=== PATIENT | male | born 1940 | race Caucasian/White ===

== ENCOUNTER 2020-01-18 18:12 | Inpatient (IN) | payer MEDICARE, OTHER ==
[2020-01-18 18:58] VITALS: BMI 33.3
[2020-01-18] MEDS ORDERED: Metolazone 5 MG TAB PO PRN (20:40)
[2020-01-18] MEDS ORDERED: Senokot S 8.6-50 MG TAB PO PRN (20:40)
[2020-01-18] MEDS ORDERED: Albuterol Sulfate 2.5 mg/3 ml Neb NEB PRN (20:40)
[2020-01-18] MEDS ORDERED: Furosemide 40 MG TAB PO SCH (21:00)
[2020-01-18] MEDS ORDERED: cefTRIAXone\\ROCEPHIN 2 GM VIAL IVPB SCH (21:00)
[2020-01-18] MEDS: Atorvastatin Calcium 20 MG TAB PO SCH (21:37)
[2020-01-18] MEDS: cefTRIAXone\\ROCEPHIN 2 GM in Sodium Chloride 0.9% 100 ML IVPB SCH (21:37)
[2020-01-18] MEDS: Apixaban 2.5 MG TAB PO SCH (21:37)
[2020-01-18] MEDS: Gabapentin 300 MG CAP PO SCH (21:37)
[2020-01-18] MEDS: Ampicillin 2 GM in Sodium Chloride 0.9% 100 ML IVPB SCH (23:01)
[2020-01-18] MEDS ORDERED: Ampicillin 2 GM VIAL IVPB SCH (23:59)
[2020-01-19] MEDS: Ampicillin 2 GM in Sodium Chloride 0.9% 100 ML IVPB SCH ×4 (00:30→18:17)
[2020-01-19] MEDS: cefTRIAXone\\ROCEPHIN 2 GM in Sodium Chloride 0.9% 100 ML IVPB SCH ×4 (00:30→20:30)
[2020-01-19] MEDS: Furosemide 40 MG TAB PO SCH ×2 (05:29→14:47)
[2020-01-19 05:35] LABS: ALT (SGPT) 220 U/L (8-55); AST (SGOT) 121 U/L (5-34); Albumin 2.6 g/dL (3.4-4.8); Alkaline Phosphatase 203 U/L (40-110); Anion Gap 13 mmol/L (10-20); Anisocytosis SLIGHT = 6-15 cells (100X) (0-5/hpf); BUN (Urea Nitrogen) 32 mg/dL (8.4-25.7); Band 16 % (5-11); Bilirubin, Total 0.3 mg/dL (0.2-1.2); Calc. Creatinine Clearance 96 mL/min (70-130); Calcium 8.2 mg/dL (7.8-10.44); Carbon Dioxide 24 mmol/L (23-31); Chloride 106 mmol/L (98-107); Estimated GFR-MDRD 71; Glucose 94 mg/dL (83-110); Hemoglobin 9.7 g/dL (14.0-18.0); Lymphocytes 10 % (21-51); MDiff Complete? YES; Mean Corpuscular Hemoglobin 32.3 pg (27.0-31.0); Mean Platelet Volume 5.6 fL (7.4-10.4); Metamyelocyte 6 % (0-0); Monocytes 3 % (0-10); Myelocyte 3 % (0-0); Neutrophil 62 % (42-75); Platelet Count 358 thou/uL (130-400); Platelet Morphology Comment Appears Adequate; Polychromasia SLIGHT = 2-3 cells (100X) (0-2/hpf); Protein, Total 5.6 g/dL (5.8-8.1); RBC Distribution Width 12.4 % (11.5-14.5); Red Blood Cell (RBC) Count 3.01 mill/uL (4.70-6.10); Sodium 138 mmol/L (136-145); White Blood Cell (WBC) Count 15.2 thou/uL (4.8-10.8)
[2020-01-19] MEDS ORDERED: Mometasone/Formoterol 200/5 60 PUFF INH PRN (06:30)
[2020-01-19] MEDS: Colchicine 0.6 MG TAB PO SCH (09:24)
[2020-01-19] MEDS: Thiamine 100 MG TAB PO SCH (09:24)
[2020-01-19] MEDS: Ferrous Sulfate 325 MG TAB PO SCH (09:25)
[2020-01-19] MEDS: Potassium Chloride 20 MEQ TAB PO SCH (09:25)
[2020-01-19] MEDS: Multivitamin W/ Minerals 1 TAB PO SCH (09:25)
[2020-01-19] MEDS: Spironolactone 25 MG TAB PO SCH (09:25)
[2020-01-19] MEDS: Amiodarone 200 MG TAB PO SCH (09:25)
[2020-01-19] MEDS: Allopurinol 100 MG TAB PO SCH (09:26)
[2020-01-19] MEDS: Apixaban 2.5 MG TAB PO SCH ×2 (09:26→20:28)
[2020-01-19] MEDS: Aspirin 81 mg Enteric Coated Tablet PO SCH (09:26)
[2020-01-19] MEDS: Magnesium Oxide 400 MG TAB PO SCH (09:26)
[2020-01-19] MEDS: Polyethylene Glycol 3350 17 GM Packet PO SCH (09:26)
[2020-01-19] MEDS ORDERED: Sodium Chloride 0.9% 20 ML ONE (10:10)
[2020-01-19] MEDS: Acetaminophen 325 MG TAB PO PRN (14:49)
[2020-01-19] MEDS ORDERED: Sodium Chloride 0.9% 10 ML ONE (16:09)
[2020-01-19] MEDS: Gabapentin 300 MG CAP PO SCH (20:27)
[2020-01-19] MEDS: Atorvastatin Calcium 20 MG TAB PO SCH (20:28)
--- NOTE | 2020-01-19 22:10 | PRG ---
DATE OF SERVICE: 01/19/2020 SUBJECTIVE: The patient feels well. No complaints. States he has been up out of the bed, having no shortness of breath, fever, or chills. OBJECTIVE: VITAL SIGNS: Shows temperature is 97, pulse 62, respirations 18, O2 sats 98% on room air, blood pressure 128/60. LUNGS: Clear. CARDIAC: Shows regular rhythm. Pacemaker site, minimal tenderness. SKIN/EXTREMITIES: Shows tender right ankle. No erythema. Trace to 1+ peripheral edema. ASSESSMENT: 1. 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 2. Elevated liver function studies, worsened in the last several days and we will obtain abdominal ultrasound, although the patient is nontender to evaluate for occult cholecystitis. 3. Systolic heart failure, appears to be compensated. 4. Atrial fibrillation, status post ablation with Watchman procedure. 5. Colchicine-induced arthropathy, persistent, but controlled on and allopurinol. PLAN: 1. Abdominal ultrasound on Tuesday. Continue IV Rocephin and ampicillin. 2. Continue to monitor for recurrent atrial fibrillation. 3. Continue to monitor for fluid overload. Job ID: [id number]
--- NOTE | 2020-01-20 03:12 | HP ---
HISTORY OF PRESENT ILLNESS: The patient is an 79-year-old white male with a history of chronic atrial fibrillation with a Watchman device and pacemaker as well as coronary disease who presented with increased edema, fever. Two weeks ago was evaluated at [facility], found to have enterococcal bacteremia, was seen by Infectious Disease, found to have no specific source in the colon or the urine and was felt he possibly had an infected pacemaker. The patient was, therefore, started on Rocephin and ampicillin for 4 weeks and transferred to [facility] for continued therapy. He feels well at this time except for his pain in his right ankle, where he has his chronic crystal-induced arthropathy. He has been working with nurses in walking and is limited more by his ankle than by shortness of breath. He denies any shortness of breath or chest pain, fever or chills since his admission to the [facility]. PAST MEDICAL HISTORY: As mentioned above, is positive for atrial fibrillation and is status post Watchman procedure and pacemaker, but also has a history of coronary artery disease status post angioplasty and a history of hypertension as well as the crystal-induced arthropathy. PAST SURGICAL HISTORY: Positive for cholecystectomy, hernia repair, bilateral shoulder and knee surgeries. SOCIAL HISTORY: He lives with his of many years. He is a nonsmoker. He drinks alcohol daily. ALLERGIES: HE HAS NO KNOWN ALLERGIES. MEDICATIONS: At this time include: 1. Allopurinol 100 mg daily. 2. Amiodarone 400 mg daily. 3. Ampicillin 2 g IV q.6 for 30 days. 4. Apixaban 2.5 mg twice daily. 5. Aspirin 81 daily. 6. Atorvastatin 20 mg daily. 7. Rocephin 2 g IV q.12. 8. Colchicine 0.6 mg daily. 9. Ferrous sulfate 325 mg daily. 10. Furosemide 40 mg twice daily. 11. Gabapentin 600 mg nightly. 12. Magnesium oxide 400 mg daily. 13. Metolazone 5 mg daily p.r.n. edema. 14. Mometasone. 15. Formoterol. 16. Dulera 200 mcg/5 mcg inhaler 2 puffs twice daily. 17. Pantoprazole 40 mg twice daily. 18. KCl 40 mEq daily. 19. MiraLAX 17 g daily. 20. Spironolactone 50 mg daily. 21. Thiamine 100 mg daily. REVIEW OF SYSTEMS: HEENT: Denies headaches, dizziness, change in vision, hoarseness or dysphagia. PULMONARY: Denies cough, sputum production, shortness of breath, but does state he has dyspnea on exertion. CARDIOVASCULAR: Has some peripheral edema, but denies chest pain, palpitations, orthopnea, paroxysmal nocturnal dyspnea. GASTROINTESTINAL: Complains of constipation, but denies nausea, vomiting, diarrhea, abdominal pain. GENITOURINARY: Denies dysuria, hematuria, nocturia. MUSCULOSKELETAL: Complains of pain, tenderness, swelling in both ankles. PHYSICAL EXAMINATION: GENERAL: The patient is an elderly white male, lying in bed, in no acute distress, oriented x3, and cooperative. VITAL SIGNS: Show him to have a blood pressure of 154/67, temperature 97.9, pulse 68, respirations 20, O2 sats 96% on room air. HEENT: Pupils are equal, round, and reactive to light and accommodation. Oral mucous membranes well hydrated. NECK: Supple. There are no nodes or masses. JVP is not elevated. LUNGS: Clear. CARDIAC: Shows regular rhythm. Pacemaker is in place. No murmurs, gallops. ABDOMEN: Soft and nontender. SKIN: Extremities show tender right ankle with minimal swelling. No erythema or warmth. NEUROLOGICAL: Shows no focal findings. LABORATORY DATA: White count down to 15,200 today, hematocrit 30, hemoglobin 9.7. Sodium 138, potassium 5.0, chloride 106, bicarb 24, BUN 32, creatinine 1.01, glucose 94, calcium 8.2, AST 121, ALT 220, alkaline phosphatase 203. ASSESSMENT: An 79-year-old white male with: 1. A history of ischemic cardiomyopathy, ejection fraction 30% to 35%, an AICD in place after ablation of atrial fibrillation and placement of Watchman procedure, who has been found to have enterococcal bacteremia with fever and chills in 2/2 blood cultures and is felt to be need to be treated for endocarditis. There is no other source of bacteremia in the colon or urine. He has been started on ampicillin and Rocephin for 4 weeks and admitted to [facility] to finish the course. He has the underlying history as mentioned above of coronary artery disease and ischemic cardiomyopathy, status post defibrillator, but denies any shortness of breath or chest pain at rest and states that he is limited in his exercise capability because of his arthritis in his ankle. 2. Crystal-induced arthropathy of both ankles, right worse than left, treated with colchicine with tolerable, but persistent pain. 3. Hypertension, controlled at goal. PLAN: 1. Continue prehospitalization medications of amiodarone 400 daily as well as ampicillin 2 g q.6 for 30 days and Rocephin 2 g q.12 for 30 days. Also, continue on allopurinol 100 mg daily and colchicine 0.6 daily for crystal-induced arthropathy and continue on apixaban 2.5 twice daily, furosemide 40 mg twice daily, and metolazone 5 mg as needed for edema. 2. Continue on thiamine and spironolactone 50 mg daily for alcoholic liver disease and possible withdrawal, but we will also get abdominal ultrasound on Tuesday because of increasing liver function studies and possible alcoholic hepatitis or obstructive cholangitis causing the bacteremia. Job ID: [id number]
[2020-01-20] MEDS: Ampicillin 2 GM in Sodium Chloride 0.9% 100 ML IVPB SCH ×3 (06:25→18:14)
[2020-01-20] MEDS: Furosemide 40 MG TAB PO SCH ×2 (06:25→13:02)
[2020-01-20] MEDS ORDERED: Sodium Chloride 0.9% 10 ML ONE (08:54)
[2020-01-20] MEDS: cefTRIAXone\\ROCEPHIN 2 GM in Sodium Chloride 0.9% 100 ML IVPB SCH ×2 (09:29→20:24)
[2020-01-20] MEDS: Polyethylene Glycol 3350 17 GM Packet PO SCH (09:29)
[2020-01-20] MEDS: Spironolactone 25 MG TAB PO SCH (09:30)
[2020-01-20] MEDS: Amiodarone 200 MG TAB PO SCH (09:30)
[2020-01-20] MEDS: Allopurinol 100 MG TAB PO SCH (09:30)
[2020-01-20] MEDS: Colchicine 0.6 MG TAB PO SCH (09:30)
[2020-01-20] MEDS: Potassium Chloride 20 MEQ TAB PO SCH (09:30)
[2020-01-20] MEDS: Thiamine 100 MG TAB PO SCH (09:30)
[2020-01-20] MEDS: Apixaban 2.5 MG TAB PO SCH ×2 (09:31→20:27)
[2020-01-20] MEDS: Aspirin 81 mg Enteric Coated Tablet PO SCH (09:31)
[2020-01-20] MEDS: Multivitamin W/ Minerals 1 TAB PO SCH (09:31)
[2020-01-20] MEDS: Ferrous Sulfate 325 MG TAB PO SCH (09:31)
[2020-01-20] MEDS: Magnesium Oxide 400 MG TAB PO SCH (09:31)
[2020-01-20] MEDS: Gabapentin 300 MG CAP PO SCH (20:27)
[2020-01-20] MEDS: Atorvastatin Calcium 20 MG TAB PO SCH (20:27)
--- NOTE | 2020-01-20 20:35 | PRG ---
DATE OF SERVICE: SUBJECTIVE: The patient feels well. No complaints of chest pain, shortness of breath, fever, or chills. He slept well through the night. Has eaten well today. OBJECTIVE: VITAL SIGNS: Show temperature is 97.1 pulse 62, respirations 18, O2 sats 98% on room air, and blood pressure 147/68. LUNGS: Clear. CARDIAC EXAMINATION: Shows regular rhythm. ABDOMEN: Soft and nontender. CHEST WALL: Pacemaker site shows minimal tenderness. SKIN AND EXTREMITIES: Show minimally tender swollen right ankle. ASSESSMENT: 1. Enterococcal bacteremia, on IV ampicillin and Rocephin 4 weeks. 2. Elevated liver function studies on unknown etiology with abdominal ultrasound tomorrow. 3. Systolic heart failure appears to be compensated. 4. Atrial fibrillation, status post ablation, pacemaker and Watchman procedure. 5. Colchicine-induced arthropathy, persistent, but controlled with allopurinol. PLAN: 1. Continue IV Rocephin and ampicillin for 4 weeks. 2. Obtain abdominal ultrasound tomorrow. 3. Continue to monitor for recurrent atrial fibrillation. 4. Continue to monitor for decompensation of congestive heart failure. 5. Dr. Montoya will be back tonight. Job ID: [id number]
[2020-01-21] MEDS: Ampicillin 2 GM in Sodium Chloride 0.9% 100 ML IVPB SCH ×4 (00:25→18:08)
[2020-01-21] MEDS: Furosemide 40 MG TAB PO SCH ×2 (05:23→13:52)
[2020-01-21] MEDS: Amiodarone 200 MG TAB PO SCH (08:58)
[2020-01-21] MEDS: Allopurinol 100 MG TAB PO SCH (08:58)
[2020-01-21] MEDS: Apixaban 2.5 MG TAB PO SCH ×2 (08:59→20:32)
[2020-01-21] MEDS: cefTRIAXone\\ROCEPHIN 2 GM in Sodium Chloride 0.9% 100 ML IVPB SCH ×2 (09:00→20:32)
[2020-01-21] MEDS: Colchicine 0.6 MG TAB PO SCH (09:01)
[2020-01-21] MEDS: Magnesium Oxide 400 MG TAB PO SCH (09:01)
[2020-01-21] MEDS: Ferrous Sulfate 325 MG TAB PO SCH (09:01)
[2020-01-21] MEDS: Polyethylene Glycol 3350 17 GM Packet PO SCH (09:01)
[2020-01-21] MEDS: Multivitamin W/ Minerals 1 TAB PO SCH (09:01)
[2020-01-21] MEDS: Thiamine 100 MG TAB PO SCH (09:02)
[2020-01-21] MEDS: Spironolactone 25 MG TAB PO SCH (09:02)
[2020-01-21] MEDS: Potassium Chloride 20 MEQ TAB PO SCH (09:02)
[2020-01-21] MEDS: Aspirin 81 mg Enteric Coated Tablet PO SCH (09:07)
[2020-01-21] MEDS ORDERED: Sodium Chloride 0.9% 10 ML ONE ×2 (12:04→17:47)
--- NOTE | 2020-01-21 13:44 | PRG ---
DATE OF SERVICE: 01/21/2020 SUBJECTIVE: Mr. Canchola is up in his chair. He just finished his lunch. He is getting an echocardiogram done. He is scheduled for repair of his Watchman tomorrow. He denies any questions or concerns. He is tolerating his antibiotics. OBJECTIVE: VITAL SIGNS: He is afebrile. Heart rate 61, respirations 18, oxygen saturation 97% on room air, blood pressure 137/62. CARDIOVASCULAR SYSTEM: S1 and S2 plus. RESPIRATORY SYSTEM: Normal vesicular breath sounds. ABDOMEN: Soft and nontender. Bowel sounds heard in all quadrants. EXTREMITIES: Without cyanosis or clubbing. CENTRAL NERVOUS SYSTEM: Grossly nonfocal. Awake and responsive. IMPRESSION: 1. Enterococcal bacteremia. 2. Coronary artery disease. 3. Crystal-induced arthropathy. 4. Hypertension. 5. Dyslipidemia. 6. Atrial fibrillation, status post Watchman procedure. 7. Ischemic cardiomyopathy with ejection fraction of 30% to 35%. 8. Chronic diastolic congestive heart failure. 9. Peripheral neuropathy and possible chronic obstructive pulmonary disease. PLAN: 1. Continue current medications. 2. Heart healthy diet. 3. Monitor heart rate and rhythm. 4. DVT prophylaxis - he is on anticoagulation. 5. Decubitus precautions. 6. Stress ulcer prophylaxis. 7. Physical therapy. 8. Routine laboratory values. 9. Weekly CBC, CMP, CRP, and sedimentation rate. 10. Discussed with the patient in detail. All questions answered. Job ID: [id number]
--- NOTE | 2020-01-21 13:46 | ULT ---
ULTRASOUND ABDOMEN: HISTORY: Abdominal pain FINDINGS: The patient is post cholecystectomy. The common duct measures 4 mm in diameter. The liver and kidneys are unremarkable. The spleen is normal measuring 11 cm in length. The visualized portions of the pancreas, aorta and IVC are unremarkable. No free fluid is seen. IMPRESSION: Status post cholecystectomy.
[2020-01-21] MEDS: Acetaminophen 325 MG TAB PO PRN (13:53)
[2020-01-21] MEDS: Gabapentin 300 MG CAP PO SCH (20:32)
[2020-01-21] MEDS: Atorvastatin Calcium 20 MG TAB PO SCH (20:32)
[2020-01-22] MEDS: Ampicillin 2 GM in Sodium Chloride 0.9% 100 ML IVPB SCH ×2 (00:35→05:10)
[2020-01-22] MEDS: Furosemide 40 MG TAB PO SCH (05:11)
[2020-01-22 05:30] LABS: #Basophils 0.1 thou/uL (0.0-0.2); #Eosinphils 0.3 thou/uL (0.0-0.7); #Lymphocytes 1.8 thou/uL (1.20-3.40); #Monocytes 1.2 thou/uL (0.11-0.59); #Neutrophils 9.4 thou/uL (1.40-6.50); %Eosinophils 2.3 % (0.0-10.0); %Lymphocytes 14.1 % (21.0-51.0); %Monocytes 9.4 % (0.0-10.0); %Neutrophils 73.3 % (42.0-75.0); Hemoglobin 10.8 g/dL (14.0-18.0); Mean Corpuscular HGB CONC 33.7 g/dL (32.0-36.0); Mean Corpuscular Hemoglobin 33.2 pg (27.0-31.0); Mean Corpuscular Volume 98.5 fL (78.0-98.0); Mean Platelet Volume 5.6 fL (7.4-10.4); Platelet Count 375 thou/uL (130-400); RBC Distribution Width 12.6 % (11.5-14.5); Red Blood Cell (RBC) Count 3.25 mill/uL (4.70-6.10); White Blood Cell (WBC) Count 12.8 thou/uL (4.8-10.8)
[2020-01-22 05:37] LABS: Anion Gap 13 mmol/L (10-20); BUN (Urea Nitrogen) 29 mg/dL (8.4-25.7); Calc. Creatinine Clearance 77 mL/min (70-130); Carbon Dioxide 24 mmol/L (23-31); Chloride 104 mmol/L (98-107); Estimated GFR-MDRD 55; Potassium 4.3 mmol/L (3.5-5.1); Sodium 137 mmol/L (136-145)
[2020-01-22 05:38] LABS: ALT (SGPT) 115 U/L (8-55); AST (SGOT) 43 U/L (5-34); Albumin 2.8 g/dL (3.4-4.8); Alkaline Phosphatase 191 U/L (40-110); Bilirubin, Total 0.4 mg/dL (0.2-1.2); CRP (Inflammatory) 3.51 mg/dL (= or < 0.5); Calcium 8.3 mg/dL (7.8-10.44); Globulin 3.2 g/dL (2.4-3.5); Glucose 93 mg/dL (83-110)
[2020-01-22] MEDS: Allopurinol 100 MG TAB PO SCH (07:26)
[2020-01-22] MEDS: Amiodarone 200 MG TAB PO SCH (07:26)
[2020-01-22] MEDS: Apixaban 2.5 MG TAB PO SCH (07:27)
[2020-01-22] MEDS: Colchicine 0.6 MG TAB PO SCH (07:27)
[2020-01-22] MEDS: cefTRIAXone\\ROCEPHIN 2 GM in Sodium Chloride 0.9% 100 ML IVPB SCH (07:27)
[2020-01-22] MEDS: Ferrous Sulfate 325 MG TAB PO SCH (07:27)
[2020-01-22] MEDS: Aspirin 81 mg Enteric Coated Tablet PO SCH (07:27)
[2020-01-22] MEDS: Potassium Chloride 20 MEQ TAB PO SCH (07:28)
[2020-01-22] MEDS: Multivitamin W/ Minerals 1 TAB PO SCH (07:28)
[2020-01-22] MEDS: Magnesium Oxide 400 MG TAB PO SCH (07:28)
[2020-01-22] MEDS: Polyethylene Glycol 3350 17 GM Packet PO SCH (07:28)
[2020-01-22] MEDS: Thiamine 100 MG TAB PO SCH (07:29)
[2020-01-22] MEDS: Spironolactone 25 MG TAB PO SCH (07:29)
[2020-01-22 07:39] VITALS: BP 134/63; TEMP 97.3
--- NOTE | 2020-01-23 06:48 | DIS ---
DATE OF ADMISSION: 01/18/2020 DATE OF DISCHARGE: 01/22/2020 PRINCIPAL DIAGNOSES: 1. Enterococcal bacteremia. 2. Atrial fibrillation. 3. Crystal-induced arthropathy. 4. Dyslipidemia. 5. Coronary artery disease. 6. Hypertension. COMPLICATIONS: None. ADVERSE REACTIONS: None. PROCEDURES: Abdominal ultrasound. CONSULTATIONS: Physical Therapy. HOSPITAL COURSE: The patient was admitted as a transfer from [facility] for therapy after being diagnosed with enterococcal bacteremia requiring 4 weeks of IV antibiotics. He unfortunately has been noticed to have a slight leak from his Watchman procedure and so he is being discharged back to [facility] in [place] to undergo repair of the leak. They said that he may need to stay there overnight, which is why he is being discharged. Otherwise, this would have been done on a pass. The patient is doing well and denies any complaints. He did undergo an abdominal ultrasound due to him complaining of abdominal pain to Dr. Castillo. Abdominal ultrasound is unremarkable except for cholecystectomy. The patient will be discharged on his current medications and he most likely will come back tomorrow to resume his therapy. PHYSICAL EXAMINATION: VITAL SIGNS: On the day of discharge, he is afebrile, heart rate 62, respirations 18, oxygen saturation 98% on room air, blood pressure 134/63. DISCHARGE MEDICATIONS: 1. Tylenol 650 q.4 p.r.n. 2. Zyloprim 100 mg daily. 3. Amiodarone 400 mg daily. 4. Ampicillin 2 g IV q.6 until February 08. 5. Eliquis 2.5 b.i.d. 6. Ecotrin 81 daily. 7. Lipitor 20 daily. 8. Rocephin 2 g IV q.12 until February 08. 9. Colchicine 0.6 daily. 10. Iron sulfate 325 daily. 11. Lasix 40 b.i.d. 12. Neurontin 600 mg at bedtime. 13. Mag-Ox 400 daily. 14. Zaroxolyn 5 mg daily as needed. 15. Dulera inhaler two puffs b.i.d. gargle after use. 16. Protonix 40 b.i.d. 17. MiraLAX 17 g in 8 ounces of water daily. 18. Potassium 40 mEq daily. 19. Senokot-S 2 tablets b.i.d. p.r.n. 20. Aldactone 50 daily. 21. Thiamine 100 mg daily. LABORATORY DATA: He did have some labs this morning, which shows a white count is down to 12.8, H and H are 10.8 and 32. Sedimentation rate is 64. Sodium 137, potassium 4.3, BUN and creatinine are 29 and 1.26. AST and ALT are elevated, but they are improving. CRP is 3.51. For full details, please see chart. Job ID: [id number]
--- NOTE | 2020-01-27 23:05 | PQF ---
Emmanuel Canchola JR, POLLACHI MD [id number] CLINICAL DOCUMENTATION CLARIFICATION FORM: POST DISCHARGE Addendum to original discharge summary date: ____ Late entry note date: __ DATE:01/27/2020 ATTN:PREETI STEPHENSON MD Please exercise your independent, professional judgment in responding to the clarification form. Clinical indicators are provided on the bottom of this form for your review Please check appropriate box(s): [ ] Endocarditis is a complication of pacemaker infection [ ] Endocarditis is not a complication of pacemaker infection [ ] Other diagnosis [ x ] Unable to determine CLINICAL INDICATORS - SIGNS / SYMPTOMS / LABS Two weeks ago was evaluated at [facility] found to have enterococcal bacteremia. was seen by infectious disease. Found to have no specific source in the colon or the urine and was felt he possibly had an infected pacemaker. 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 was seen by infectious disease. 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 All Rights Reserved [email or web address] [phone] VILMA
== END 2020-01-22 08:00 | disposition short-term general hospital (02) | DRG 289 ==
LOC: NAV ACUTE 18:12
PROVIDERS: ADMIT Internal Medicine; ATTEND Internal Medicine
DX: I33.0 Acute and subacute infective endocarditis (principal); I50.32 Chronic diastolic (congestive) heart failure; I48.20 Chronic atrial fibrillation, unspecified; B95.2 Enterococcus as the cause of diseases classified elsewhere; I11.0 Hypertensive heart disease with heart failure; M12.88 Other specific arthropathies, not elsewhere classified, other specified site; R79.89 Other specified abnormal findings of blood chemistry; E78.5 Hyperlipidemia, unspecified; I25.5 Ischemic cardiomyopathy; G62.9 Polyneuropathy, unspecified; I25.10 Atherosclerotic heart disease of native coronary artery without angina pectoris; Z90.49 Acquired absence of other specified parts of digestive tract; Z95.0 Presence of cardiac pacemaker
CPT/HCPCS: 80053; 85025; 85652; 86140; 93975; J0290; J0696; J3490

== ENCOUNTER 2020-01-24 18:54 | Inpatient (IN) | payer MEDICARE, OTHER ==
[2020-01-24] MEDS ORDERED: Albuterol Sulfate 2.5 mg/3 ml Neb NEB PRN (22:11)
[2020-01-24] MEDS ORDERED: Mometasone/Formoterol 200/5 60 PUFF INH PRN ×2 (22:19→22:31)
[2020-01-24] MEDS ORDERED: Metolazone 5 MG TAB PO PRN (22:27)
[2020-01-24] MEDS ORDERED: Senokot S 8.6-50 MG TAB PO PRN (22:29)
[2020-01-24] MEDS ORDERED: Gabapentin 300 MG CAP PO SCH (22:45)
[2020-01-24] MEDS ORDERED: cefTRIAXone\\ROCEPHIN 2 GM in Sodium Chloride 0.9% 100 ML IVPB SCH (22:45)
[2020-01-24] MEDS ORDERED: Atorvastatin Calcium 20 MG TAB PO SCH (22:45)
[2020-01-24] MEDS ORDERED: Apixaban 2.5 MG TAB PO SCH (22:45)
[2020-01-24] MEDS: Ampicillin 2 GM in Sodium Chloride 0.9% 100 ML IVPB SCH (23:46)
[2020-01-25] MEDS: Ampicillin 2 GM in Sodium Chloride 0.9% 100 ML IVPB SCH ×3 (05:24→17:34)
[2020-01-25 05:37] LABS: Band 7 % (5-11); Eosinophils 3 % (0-10); Hemoglobin 10.4 g/dL (14.0-18.0); Lymphocytes 11 % (21-51); MDiff Complete? YES; Mean Corpuscular HGB CONC 33.3 g/dL (32.0-36.0); Mean Corpuscular Hemoglobin 32.5 pg (27.0-31.0); Mean Corpuscular Volume 97.3 fL (78.0-98.0); Mean Platelet Volume 5.1 fL (7.4-10.4); Monocytes 10 % (0-10); Neutrophil 67 % (42-75); Platelet Count 354 thou/uL (130-400); Platelet Morphology Comment Appears Adequate; RBC Morphology Normal; Reactive Lymphocytes 2 % (0-10); White Blood Cell (WBC) Count 12.2 thou/uL (4.8-10.8)
[2020-01-25] MEDS: Apixaban 2.5 MG TAB PO SCH ×2 (08:16→20:40)
[2020-01-25] MEDS: Potassium Chloride 20 MEQ TAB PO SCH (08:16)
[2020-01-25] MEDS: Multivitamin W/ Minerals 1 TAB PO SCH (08:17)
[2020-01-25] MEDS: Magnesium Oxide 400 MG TAB PO SCH (08:18)
[2020-01-25] MEDS: Amiodarone 200 MG TAB PO SCH (08:18)
[2020-01-25] MEDS: Furosemide 40 MG TAB PO SCH ×2 (08:18→13:27)
[2020-01-25] MEDS: Ferrous Sulfate 325 MG TAB PO SCH (08:18)
[2020-01-25] MEDS: Colchicine 0.6 MG TAB PO SCH (08:18)
[2020-01-25] MEDS: Spironolactone 25 MG TAB PO SCH (08:18)
[2020-01-25] MEDS: Allopurinol 100 MG TAB PO SCH (08:19)
[2020-01-25] MEDS: cefTRIAXone\\ROCEPHIN 2 GM in Sodium Chloride 0.9% 100 ML IVPB SCH ×2 (08:19→20:41)
[2020-01-25] MEDS: Thiamine 100 MG TAB PO SCH (08:19)
[2020-01-25] MEDS: Aspirin 81 mg Enteric Coated Tablet PO SCH (08:19)
[2020-01-25] MEDS: Polyethylene Glycol 3350 17 GM Packet PO SCH (08:20)
--- NOTE | 2020-01-25 09:55 | HP ---
CHIEF COMPLAINT: Enterococcal bacteremia for long-term IV antibiotic therapy. BRIEF HISTORY: This is a very pleasant 79-year-old male, who was recently in the hospital with edema and fever. Blood cultures grew Enterococcus. There was suspicion for an infected pacemaker. He was recommended 4 weeks of IV ampicillin and Rocephin, end date is February 08. He was admitted here for a few days, but he had to go back to the hospital for fixing his Watchman leak. He underwent the procedure, but developed a right groin hematoma, so they kept him overnight for observation. His hemoglobin remained stable and ultrasound did not show development of any pseudoaneurysm, so he was felt to be safe to come back and start rehab. He was admitted last night. The patient denies any concerns. No family at bedside. No further fever or chills. No chest pain or shortness of breath. PAST MEDICAL HISTORY: 1. Atrial fibrillation. 2. Coronary artery disease. 3. Hypertension. 4. Dyslipidemia. 5. Gout. 6. Anemia, likely iron deficiency. 7. Enterococcal bacteremia. 8. Deconditioning. 9. Possible tinea cruris. 10. Obstructive sleep apnea. PAST SURGICAL HISTORY: 1. Cholecystectomy. 2. Hernia repair. 3. Bilateral shoulder surgery. 4. Bilateral knee surgery. 5. Permanent pacemaker placement. 6. Watchman placement and Watchman repair. ALLERGIES: NO KNOWN DRUG ALLERGIES. FAMILY HISTORY: Noncontributory to current admission. PSYCHOSOCIAL HISTORY: Social alcohol intake. Denies any tobacco or recreational drug abuse. He is . MEDICATIONS: He has been sent here on the following medications; 1. Tylenol 650 p.o. q.4 p.r.n. 2. Albuterol 2.5 mg q.6 p.r.n. via nebulizer. 3. Allopurinol 100 mg daily. 4. Amiodarone 400 mg daily. 5. Eliquis 2.5 mg b.i.d. 6. Aspirin 81 mg daily. 7. Lipitor 20 mg daily. 8. Ampicillin 2 g q.6 hours IV still . 9. Rocephin 2 g IV q.12 hours till . 10. Colchicine 0.6 mg daily. 11. Iron sulfate 325 daily. 12. Lasix 40 mg b.i.d. 13. Gabapentin 600 mg at bedtime. 14. Mag-Ox 400 mg daily. 15. Zaroxolyn 5 mg p.o. daily p.r.n. 16. Dulera 2 puffs inhalation b.i.d., gargle after use. 17. Protonix 40 mg b.i.d. 18. MiraLAX 17 g in 8 ounces of water daily. 19. Potassium 40 mEq daily. 20. Senokot one tab p.o. b.i.d. p.r.n. 21. Aldactone 50 mg daily. 22. Thiamine 100 mg daily. REVIEW OF SYSTEMS: CARDIOVASCULAR SYSTEM: Denies any chest pain, shortness of breath, palpitations, PND, orthopnea, or pedal edema. RESPIRATORY SYSTEM: Denies any chronic cough, expectoration, or pleuritic-type chest pain. GASTROINTESTINAL SYSTEM: Denies any nausea, vomiting, diarrhea, constipation, hematemesis, melena, or hematochezia. GENITOURINARY SYSTEM: Denies any frequency, urgency, dysuria, or hematuria. CENTRAL NERVOUS SYSTEM: Denies any focal numbness, weakness, or fainting spells. HEENT: Denies any difficulty with speech, vision, hearing, or swallowing. EXTREMITIES: Occasional joint pains. SKIN: Does have a rash in his abdominal folds. He states he normally uses antibiotic cream. When I examined him, it looks more like tinea cruris and we will start him on nystatin powder. PHYSICAL EXAMINATION: GENERAL: Very pleasant 79-year-old male, resting comfortably in bed and denies any complaints. He is alert, awake, and oriented x3. He is not in any distress. No family at bedside. VITAL SIGNS: He is afebrile, heart rate 64, respirations 18, oxygen saturation 96% on room air, and blood pressure 135/63. HEENT: Normocephalic atraumatic. Pupils are equally reactive to light and accommodation. NECK: No JVD, thyromegaly, cervical lymphadenopathy, or throat exudates. No carotid bruits. CARDIOVASCULAR SYSTEM: S1 and S2 plus. RESPIRATORY SYSTEM: Normal vesicular breath sounds. Decreased air entry on the bases. ABDOMEN: Soft, obese, and nontender. Small pannus with abdominal fold showing evidence for possible tinea cruris. Bowel sounds heard in all quadrants. No organomegaly. No palpable mass. No CV angle tenderness. EXTREMITIES: Without cyanosis or clubbing. Right groin does show some bruising consistent with hematoma. No neurovascular compromise. CENTRAL NERVOUS SYSTEM: Awake and responsive. Cranial nerves II through XII intact. Grossly nonfocal. LABORATORY DATA: Laboratory values done this morning shows a white count of 12.2, H and H are 10.4 and 31.2. IMPRESSION: 1. Recent Watchman repair with subsequent development for right groin hematoma. We will continue to monitor. 2. Coronary artery disease. 3. Hypertension. 4. Dyslipidemia. 5. Atrial fibrillation. 6. Gout. 7. Obstructive sleep apnea. 8. Anemia, likely due to acute blood loss. 9. Deconditioning. PLAN: 1. Continue current medications. 2. Heart-healthy diet. 3. DVT prophylaxis - the patient is on Eliquis. 4. Decubitus precautions. 5. Stress ulcer prophylaxis. 6. Monitor for any other signs or symptoms of bleeding. 7. Consult PT and OT. 8. Change his Dulera to daily schedule and not p.r.n. 9. Monitor respiratory status. 10. Routine laboratory values. 11. Discussed with the patient and nursing in detail. All questions answered. Job ID: [id number]
[2020-01-25] MEDS: Nystatin Powder 15 GM BOT TOP PRN ×2 (11:36→20:41)
[2020-01-25] MEDS: Mometasone/Formoterol 200/5 60 PUFF INH SCH ×2 (17:35→17:36)
[2020-01-25] MEDS: Atorvastatin Calcium 20 MG TAB PO SCH (20:40)
[2020-01-25] MEDS: Gabapentin 300 MG CAP PO SCH (20:41)
[2020-01-26] MEDS: Ampicillin 2 GM in Sodium Chloride 0.9% 100 ML IVPB SCH ×4 (00:03→17:42)
[2020-01-26] MEDS: Mometasone/Formoterol 200/5 60 PUFF INH SCH ×3 (05:18→18:14)
[2020-01-26 05:28] LABS: Band 8 % (5-11); Eosinophils 2 % (0-10); Hemoglobin 10.2 g/dL (14.0-18.0); Lymphocytes 16 % (21-51); MDiff Complete? YES; Mean Corpuscular HGB CONC 34.1 g/dL (32.0-36.0); Mean Corpuscular Hemoglobin 33.1 pg (27.0-31.0); Mean Corpuscular Volume 96.9 fL (78.0-98.0); Mean Platelet Volume 5.6 fL (7.4-10.4); Metamyelocyte 1 % (0-0); Monocytes 10 % (0-10); Neutrophil 63 % (42-75); Platelet Count 336 thou/uL (130-400); Platelet Morphology Comment Appears Adequate; RBC Distribution Width 12.6 % (11.5-14.5); RBC Morphology Normal; Red Blood Cell (RBC) Count 3.07 mill/uL (4.70-6.10); White Blood Cell (WBC) Count 11.9 thou/uL (4.8-10.8)
[2020-01-26 05:31] LABS: Anion Gap 14 mmol/L (10-20); BUN (Urea Nitrogen) 32 mg/dL (8.4-25.7); Calc. Creatinine Clearance 63 mL/min (70-130); Calcium 8.4 mg/dL (7.8-10.44); Carbon Dioxide 26 mmol/L (23-31); Chloride 99 mmol/L (98-107); Estimated GFR-MDRD 46; Glucose 97 mg/dL (83-110); Potassium 4.2 mmol/L (3.5-5.1); Sodium 135 mmol/L (136-145)
[2020-01-26] MEDS: Potassium Chloride 20 MEQ TAB PO SCH (08:31)
[2020-01-26] MEDS: Spironolactone 25 MG TAB PO SCH (08:32)
[2020-01-26] MEDS: Allopurinol 100 MG TAB PO SCH (08:32)
[2020-01-26] MEDS: Aspirin 81 mg Enteric Coated Tablet PO SCH (08:33)
[2020-01-26] MEDS: Apixaban 2.5 MG TAB PO SCH ×2 (08:33→21:09)
[2020-01-26] MEDS: Amiodarone 200 MG TAB PO SCH (08:33)
[2020-01-26] MEDS: cefTRIAXone\\ROCEPHIN 2 GM in Sodium Chloride 0.9% 100 ML IVPB SCH ×2 (08:33→21:08)
[2020-01-26] MEDS: Multivitamin W/ Minerals 1 TAB PO SCH (08:34)
[2020-01-26] MEDS: Colchicine 0.6 MG TAB PO SCH (08:34)
[2020-01-26] MEDS: Furosemide 40 MG TAB PO SCH ×2 (08:34→13:17)
[2020-01-26] MEDS: Magnesium Oxide 400 MG TAB PO SCH (08:34)
[2020-01-26] MEDS: Thiamine 100 MG TAB PO SCH (08:35)
[2020-01-26] MEDS: Polyethylene Glycol 3350 17 GM Packet PO SCH (08:35)
[2020-01-26] MEDS: Ferrous Sulfate 325 MG TAB PO SCH (09:19)
[2020-01-26 13:09] VITALS: BMI 35.5
--- NOTE | 2020-01-26 17:25 | PRG ---
DATE OF SERVICE: 01/26/2020 SUBJECTIVE: Mr. Canchola is resting in bed. He is being complaint with his CPAP. He denies any questions or concerns. He states that his groin pain is improving. OBJECTIVE: VITAL SIGNS: He is afebrile, heart rate is 61, respirations 18, oxygen saturation 97% on room air, and blood pressure 134/63. CARDIOVASCULAR SYSTEM: S1 and S2 plus. RESPIRATORY SYSTEM: Normal vesicular breath sounds. ABDOMEN: Soft and nontender. Bowel sounds heard in all quadrants. EXTREMITIES: Without cyanosis or clubbing. CENTRAL NERVOUS SYSTEM: Grossly nonfocal. LABORATORY VALUES: White count is 11.9, hemoglobin and hematocrit are 10.2 and 29.8. Sodium 135, potassium 4.2, and BUN and creatinine are 32 and 1.48. IMPRESSION: 1. Enterococcal bacteremia, on antibiotics until 02/08. 2. Atrial fibrillation status post Watchman procedure and Watchman repair due to leak. 3. Coronary artery disease. 4. Hypertension. 5. Dyslipidemia. 6. Anemia. 7. Tinea cruris. 8. Obstructive sleep apnea. PLAN: 1. Continue current medications. 2. Heart healthy diet. 3. DVT prophylaxis with Eliquis. 4. Decubitus precautions. 5. Stress ulcer prophylaxis. 6. Reinforce compliance with CPAP. 7. Physical therapy. 8. Weekly CBC, CRP, CMP, and sedimentation rate. Job ID: [id number]
[2020-01-26] MEDS: Gabapentin 300 MG CAP PO SCH (21:09)
[2020-01-26] MEDS: Atorvastatin Calcium 20 MG TAB PO SCH (21:09)
[2020-01-26] MEDS: Nystatin Powder 15 GM BOT TOP PRN (21:10)
[2020-01-27 05:20] LABS: #Basophils 0.1 thou/uL (0.0-0.2); #Eosinphils 0.4 thou/uL (0.0-0.7); #Lymphocytes 1.2 thou/uL (1.20-3.40); #Monocytes 1.8 thou/uL (0.11-0.59); #Neutrophils 8.3 thou/uL (1.40-6.50); %Basophils 0.9 % (0.0-1.0); %Eosinophils 3.8 % (0.0-10.0); %Lymphocytes 10.4 % (21.0-51.0); %Monocytes 14.9 % (0.0-10.0); Hemoglobin 9.9 g/dL (14.0-18.0); Mean Corpuscular HGB CONC 33.8 g/dL (32.0-36.0); Mean Corpuscular Hemoglobin 32.8 pg (27.0-31.0); Mean Corpuscular Volume 97.1 fL (78.0-98.0); Mean Platelet Volume 5.5 fL (7.4-10.4); Platelet Count 337 thou/uL (130-400); RBC Distribution Width 12.7 % (11.5-14.5); Red Blood Cell (RBC) Count 3.02 mill/uL (4.70-6.10); White Blood Cell (WBC) Count 11.8 thou/uL (4.8-10.8)
[2020-01-27] MEDS: Ampicillin 2 GM in Sodium Chloride 0.9% 100 ML IVPB SCH ×5 (05:36→23:59)
[2020-01-27] MEDS: Mometasone/Formoterol 200/5 60 PUFF INH SCH ×2 (05:46→20:46)
[2020-01-27] MEDS: Ferrous Sulfate 325 MG TAB PO SCH (08:24)
[2020-01-27] MEDS: Amiodarone 200 MG TAB PO SCH (08:25)
[2020-01-27] MEDS: Spironolactone 25 MG TAB PO SCH (08:25)
[2020-01-27] MEDS: Potassium Chloride 20 MEQ TAB PO SCH (08:25)
[2020-01-27] MEDS: Apixaban 2.5 MG TAB PO SCH ×2 (08:26→20:52)
[2020-01-27] MEDS: Allopurinol 100 MG TAB PO SCH (08:26)
[2020-01-27] MEDS: Aspirin 81 mg Enteric Coated Tablet PO SCH (08:26)
[2020-01-27] MEDS: Colchicine 0.6 MG TAB PO SCH (08:27)
[2020-01-27] MEDS: Magnesium Oxide 400 MG TAB PO SCH (08:27)
[2020-01-27] MEDS: Multivitamin W/ Minerals 1 TAB PO SCH (08:27)
[2020-01-27] MEDS: Furosemide 40 MG TAB PO SCH ×2 (08:27→13:47)
[2020-01-27] MEDS: cefTRIAXone\\ROCEPHIN 2 GM in Sodium Chloride 0.9% 100 ML IVPB SCH ×2 (08:27→20:48)
[2020-01-27] MEDS: Thiamine 100 MG TAB PO SCH (08:28)
[2020-01-27] MEDS: Polyethylene Glycol 3350 17 GM Packet PO SCH (08:28)
--- NOTE | 2020-01-27 16:10 | PRG ---
DATE OF SERVICE: 01/27/2020 SUBJECTIVE: Mr. Canchola is resting in bed. He denies any complaints. He apparently walked with the nurses yesterday. Denies any chest pain or shortness of breath. Tolerating his antibiotics. OBJECTIVE: VITAL SIGNS: He is afebrile. Heart rate 60, respirations 20, oxygen saturation 96% on room air, blood pressure 128/59. CARDIOVASCULAR: S1 and S2 plus. RESPIRATORY: Normal vesicular breath sounds. ABDOMEN: Soft and nontender. Bowel sounds heard in all quadrants. EXTREMITIES: Without cyanosis or clubbing. Right groin puncture site looks healthy. CENTRAL NERVOUS SYSTEM: Improving deconditioning. LABORATORY DATA: White count is 11.8, H and H are 9.9 and 29.4. IMPRESSION: 1. Enterococcal bacteremia. 2. Obstructive sleep apnea. 3. Atrial fibrillation, status post Watchman procedure. 4. Recent Watchman repair. 5. Hypertension. 6. Dyslipidemia. 7. Improving deconditioning. 8. Possible tinea cruris. PLAN: 1. Continue current medications. 2. Heart-healthy diet. 3. DVT prophylaxis - he is on Eliquis. 4. Decubitus precautions. 5. Stress ulcer prophylaxis. 6. Continue using his CPAP. 7. Routine laboratory values. 8. Weekly CBC, CMP, CRP, and sedimentation rate. 9. Anemia, stable. 10. Reviewed prior records, and his end date for antibiotics is February 08. Job ID: [id number]
[2020-01-27] MEDS: Atorvastatin Calcium 20 MG TAB PO SCH (20:51)
[2020-01-27] MEDS: Gabapentin 300 MG CAP PO SCH (20:51)
[2020-01-27] MEDS: Nystatin Powder 15 GM BOT TOP PRN (20:56)
[2020-01-28] MEDS: Furosemide 40 MG TAB PO SCH ×2 (05:08→13:33)
[2020-01-28] MEDS: Ampicillin 2 GM in Sodium Chloride 0.9% 100 ML IVPB SCH ×3 (05:21→17:30)
[2020-01-28] MEDS: Mometasone/Formoterol 200/5 60 PUFF INH SCH ×2 (05:35→17:31)
[2020-01-28] MEDS: Aspirin 81 mg Enteric Coated Tablet PO SCH (08:37)
[2020-01-28] MEDS: Potassium Chloride 20 MEQ TAB PO SCH (08:38)
[2020-01-28] MEDS: Multivitamin W/ Minerals 1 TAB PO SCH (08:39)
[2020-01-28] MEDS: Ferrous Sulfate 325 MG TAB PO SCH (08:39)
[2020-01-28] MEDS: Colchicine 0.6 MG TAB PO SCH (08:39)
[2020-01-28] MEDS: Amiodarone 200 MG TAB PO SCH (08:39)
[2020-01-28] MEDS: Allopurinol 100 MG TAB PO SCH (08:40)
[2020-01-28] MEDS: Apixaban 2.5 MG TAB PO SCH ×2 (08:40→20:33)
[2020-01-28] MEDS: cefTRIAXone\\ROCEPHIN 2 GM in Sodium Chloride 0.9% 100 ML IVPB SCH ×2 (08:40→20:31)
[2020-01-28] MEDS: Thiamine 100 MG TAB PO SCH (08:40)
[2020-01-28] MEDS: Spironolactone 25 MG TAB PO SCH (08:40)
[2020-01-28] MEDS: Magnesium Oxide 400 MG TAB PO SCH (08:40)
[2020-01-28] MEDS: Polyethylene Glycol 3350 17 GM Packet PO SCH (08:45)
[2020-01-28] MEDS: Acetaminophen 325 MG TAB PO PRN (13:35)
--- NOTE | 2020-01-28 13:39 | PRG ---
DATE OF SERVICE: 01/28/2020 SUBJECTIVE: Mr. Canchola is doing well. Denies any complaints. Resting comfortably. Discussed with his daughter, Rosalia yesterday and answered all her questions. OBJECTIVE: VITAL SIGNS: He is afebrile, heart rate 68, respirations 18, oxygen saturation 98% on room air, blood pressure 129/60. CARDIOVASCULAR: S1, S2 plus. RESPIRATORY: Normal vesicular breath sounds. ABDOMEN: Soft, nontender. Bowel sounds heard in all quadrants. EXTREMITIES: Without cyanosis or clubbing. CENTRAL NERVOUS SYSTEM: Grossly nonfocal. IMPRESSION: 1. Enterococcal bacteremia. 2. Atrial fibrillation, status post Watchman procedure. 3. Anemia, stable, likely due to iron deficiency/acute blood loss. 4. Obstructive sleep apnea. 5. Hypertension. 6. Dyslipidemia. PLAN: 1. Continue current medications. 2. Heart healthy diet. 3. DVT prophylaxis-he is on Eliquis. 4. Decubitus precautions. 5. Stress ulcer prophylaxis. 6. Continue using his CPAP. 7. Check CBC, CMP, CRP, and sedimentation rate on Tuesday. 8. To continue therapy. 9. Discussed with the patient and nursing. All questions answered. Job ID: [id number]
[2020-01-28] MEDS: Atorvastatin Calcium 20 MG TAB PO SCH (20:33)
[2020-01-28] MEDS: Gabapentin 300 MG CAP PO SCH (20:33)
[2020-01-29] MEDS: Ampicillin 2 GM in Sodium Chloride 0.9% 100 ML IVPB SCH ×4 (00:06→17:45)
[2020-01-29] MEDS: Furosemide 40 MG TAB PO SCH ×2 (05:31→14:01)
[2020-01-29] MEDS: Mometasone/Formoterol 200/5 60 PUFF INH SCH ×2 (06:12→17:45)
[2020-01-29] MEDS: Ferrous Sulfate 325 MG TAB PO SCH (08:39)
[2020-01-29] MEDS: Spironolactone 25 MG TAB PO SCH (08:39)
[2020-01-29] MEDS: Thiamine 100 MG TAB PO SCH (08:39)
[2020-01-29] MEDS: Potassium Chloride 20 MEQ TAB PO SCH (08:39)
[2020-01-29] MEDS: Polyethylene Glycol 3350 17 GM Packet PO SCH (08:39)
[2020-01-29] MEDS: Magnesium Oxide 400 MG TAB PO SCH (08:39)
[2020-01-29] MEDS: Amiodarone 200 MG TAB PO SCH (08:39)
[2020-01-29] MEDS: Allopurinol 100 MG TAB PO SCH (08:40)
[2020-01-29] MEDS: cefTRIAXone\\ROCEPHIN 2 GM in Sodium Chloride 0.9% 100 ML IVPB SCH ×2 (08:40→20:19)
[2020-01-29] MEDS: Colchicine 0.6 MG TAB PO SCH (08:40)
[2020-01-29] MEDS: Multivitamin W/ Minerals 1 TAB PO SCH (08:40)
[2020-01-29] MEDS: Apixaban 2.5 MG TAB PO SCH ×2 (08:40→20:18)
[2020-01-29] MEDS: Aspirin 81 mg Enteric Coated Tablet PO SCH (08:41)
[2020-01-29] MEDS: Nystatin Powder 15 GM BOT TOP PRN (09:00)
[2020-01-29] MEDS: Acetaminophen 325 MG TAB PO PRN (14:02)
--- NOTE | 2020-01-29 17:25 | PRG ---
DATE OF SERVICE: 01/29/2020 SUBJECTIVE: Mr. Canchola is getting ready to work with therapy. He denies any questions or concerns. He is happy with his progress. He is tolerating his medications. OBJECTIVE: VITAL SIGNS: He is afebrile. Heart rate 63, respirations 16, oxygen saturation 98% on room air, and blood pressure 147/67. CARDIOVASCULAR SYSTEM: S1 and S2 plus. RESPIRATORY SYSTEM: Normal vesicular breath sounds. ABDOMEN: Soft and nontender. Bowel sounds heard in all quadrants. EXTREMITIES: Without cyanosis or clubbing. CENTRAL NERVOUS SYSTEM: Improving deconditioning. IMPRESSION: 1. Enterococcal bacteremia. 2. Atrial fibrillation. 3. Anemia, likely due to chronic blood loss. 4. Deconditioning. 5. Obstructive sleep apnea. 6. Hypertension. 7. Dyslipidemia. PLAN: 1. Continue current medications. 2. Nutritional support. 3. Heart healthy diet. 4. Monitor heart rate and rhythm. 5. DVT prophylaxis. 6. Decubitus precautions. 7. Stress ulcer prophylaxis. 8. Physical therapy. 9. Reinforce compliance with CPAP. 10. Check CBC, CMP, CRP, and sedimentation rate on . Job ID: [id number]
[2020-01-29] MEDS: Atorvastatin Calcium 20 MG TAB PO SCH (20:18)
[2020-01-29] MEDS: Gabapentin 300 MG CAP PO SCH (20:19)
[2020-01-30] MEDS: Ampicillin 2 GM in Sodium Chloride 0.9% 100 ML IVPB SCH ×5 (00:02→23:32)
[2020-01-30] MEDS: Furosemide 40 MG TAB PO SCH ×2 (05:37→14:23)
[2020-01-30] MEDS: Mometasone/Formoterol 200/5 60 PUFF INH SCH ×2 (05:38→17:44)
[2020-01-30] MEDS: Ferrous Sulfate 325 MG TAB PO SCH (08:24)
[2020-01-30] MEDS: Potassium Chloride 20 MEQ TAB PO SCH (08:24)
[2020-01-30] MEDS: Amiodarone 200 MG TAB PO SCH (08:25)
[2020-01-30] MEDS: Spironolactone 25 MG TAB PO SCH (08:25)
[2020-01-30] MEDS: Allopurinol 100 MG TAB PO SCH (08:25)
[2020-01-30] MEDS: Apixaban 2.5 MG TAB PO SCH ×2 (08:26→20:03)
[2020-01-30] MEDS: cefTRIAXone\\ROCEPHIN 2 GM in Sodium Chloride 0.9% 100 ML IVPB SCH ×2 (08:26→20:03)
[2020-01-30] MEDS: Magnesium Oxide 400 MG TAB PO SCH (08:26)
[2020-01-30] MEDS: Aspirin 81 mg Enteric Coated Tablet PO SCH (08:26)
[2020-01-30] MEDS: Colchicine 0.6 MG TAB PO SCH (08:26)
[2020-01-30] MEDS: Polyethylene Glycol 3350 17 GM Packet PO SCH (08:27)
[2020-01-30] MEDS: Multivitamin W/ Minerals 1 TAB PO SCH (08:27)
[2020-01-30] MEDS: Thiamine 100 MG TAB PO SCH (08:27)
[2020-01-30] MEDS: Acetaminophen 325 MG TAB PO PRN (11:38)
--- NOTE | 2020-01-30 13:36 | PRG ---
DATE OF SERVICE: 01/30/2020 SUBJECTIVE: Mr. Canchola is resting in bed. He is noticing some soreness in the inside part of his thigh. He states it hurts when walking. No fever or chills. No chest pain or shortness of breath. OBJECTIVE: VITAL SIGNS: He is afebrile. Heart rate 61, respirations 18, oxygen saturation 93% on room air, and blood pressure 148/67. CARDIOVASCULAR: S1 and S2 plus. RESPIRATORY: Normal vesicular breath sounds. ABDOMEN: Soft, nontender. Bowel sounds heard in all quadrants. EXTREMITIES: Without cyanosis or clubbing. CENTRAL NERVOUS SYSTEM: Improving, deconditioning. IMPRESSION: 1. Enterococcal bacteremia. 2. Atrial fibrillation, status post Watchman placement and subsequent repair. 3. Anemia likely due to chronic blood loss. 4. Obstructive sleep apnea. 5. Hypertension. 6. Dyslipidemia. 7. Deconditioning. 8. Possible groin strain since he has tenderness to the inside part of his right thigh. No evidence for deep venous thrombosis and he is on Eliquis. PLAN: 1. Continue current medications. 2. Heart healthy diet. 3. DVT prophylaxis - he is on Eliquis. 4. Decubitus precautions. 5. Stress ulcer prophylaxis. 6. Continue using CPAP. 7. Routine labs tomorrow. 8. Therapy. 9. Discussed with the patient and therapist in detail. All questions answered. Job ID: [id number]
[2020-01-30] MEDS: Atorvastatin Calcium 20 MG TAB PO SCH (20:03)
[2020-01-30] MEDS: Gabapentin 300 MG CAP PO SCH (20:04)
[2020-01-31] MEDS: Ampicillin 2 GM in Sodium Chloride 0.9% 100 ML IVPB SCH ×4 (05:15→23:29)
[2020-01-31] MEDS: Furosemide 40 MG TAB PO SCH (05:15)
[2020-01-31] MEDS: Mometasone/Formoterol 200/5 60 PUFF INH SCH ×2 (05:15→17:14)
[2020-01-31 05:37] LABS: #Basophils 0.1 thou/uL (0.0-0.2); #Eosinphils 0.5 thou/uL (0.0-0.7); #Lymphocytes 1.1 thou/uL (1.20-3.40); #Monocytes 1.2 thou/uL (0.11-0.59); #Neutrophils 7.4 thou/uL (1.40-6.50); %Basophils 1.4 % (0.0-1.0); %Eosinophils 5.2 % (0.0-10.0); %Lymphocytes 10.9 % (21.0-51.0); %Monocytes 11.1 % (0.0-10.0); %Neutrophils 71.4 % (42.0-75.0); Hemoglobin 9.9 g/dL (14.0-18.0); Mean Corpuscular HGB CONC 32.6 g/dL (32.0-36.0); Mean Corpuscular Hemoglobin 32.5 pg (27.0-31.0); Mean Corpuscular Volume 99.7 fL (78.0-98.0); Mean Platelet Volume 6.1 fL (7.4-10.4); Platelet Count 333 thou/uL (130-400); RBC Distribution Width 12.8 % (11.5-14.5); Red Blood Cell (RBC) Count 3.04 mill/uL (4.70-6.10); White Blood Cell (WBC) Count 10.3 thou/uL (4.8-10.8)
[2020-01-31 05:53] LABS: ALT (SGPT) 60 U/L (8-55); AST (SGOT) 51 U/L (5-34); Albumin 2.8 g/dL (3.4-4.8); Alkaline Phosphatase 173 U/L (40-110); Anion Gap 15 mmol/L (10-20); BUN (Urea Nitrogen) 37 mg/dL (8.4-25.7); Bilirubin, Total 0.5 mg/dL (0.2-1.2); CRP (Inflammatory) 3.64 mg/dL (= or < 0.5); Calc. Creatinine Clearance 58 mL/min (70-130); Calcium 8.3 mg/dL (7.8-10.44); Carbon Dioxide 23 mmol/L (23-31); Chloride 103 mmol/L (98-107); Estimated GFR-MDRD 41; Globulin 3.3 g/dL (2.4-3.5); Glucose 104 mg/dL (83-110); Potassium 4.2 mmol/L (3.5-5.1); Protein, Total 6.1 g/dL (5.8-8.1); Sodium 137 mmol/L (136-145)
[2020-01-31] MEDS: cefTRIAXone\\ROCEPHIN 2 GM in Sodium Chloride 0.9% 100 ML IVPB SCH ×2 (08:40→20:44)
[2020-01-31] MEDS: Potassium Chloride 20 MEQ TAB PO SCH (08:41)
[2020-01-31] MEDS: Ferrous Sulfate 325 MG TAB PO SCH (08:41)
[2020-01-31] MEDS: Spironolactone 25 MG TAB PO SCH (08:41)
[2020-01-31] MEDS: Apixaban 2.5 MG TAB PO SCH ×2 (08:42→20:46)
[2020-01-31] MEDS: Amiodarone 200 MG TAB PO SCH (08:42)
[2020-01-31] MEDS: Aspirin 81 mg Enteric Coated Tablet PO SCH (08:42)
[2020-01-31] MEDS: Allopurinol 100 MG TAB PO SCH (08:42)
[2020-01-31] MEDS: Multivitamin W/ Minerals 1 TAB PO SCH (08:43)
[2020-01-31] MEDS: Colchicine 0.6 MG TAB PO SCH (08:43)
[2020-01-31] MEDS: Polyethylene Glycol 3350 17 GM Packet PO SCH (08:43)
[2020-01-31] MEDS: Magnesium Oxide 400 MG TAB PO SCH (08:43)
[2020-01-31] MEDS: Thiamine 100 MG TAB PO SCH (08:46)
[2020-01-31] MEDS: Nystatin Powder 15 GM BOT TOP PRN ×2 (08:50→20:45)
--- NOTE | 2020-01-31 14:17 | PRG ---
DATE OF SERVICE: 01/31/2020 SUBJECTIVE: Mr. Canchola is doing well. He still is noticing some pain in his right inner thigh. Apparently, he did not get any hot compresses. Nursing is going to take care of it today. His family is in the room. He is sitting in his chair. OBJECTIVE: VITAL SIGNS: He is afebrile, heart rate 60, respirations 18, oxygen saturation 97% on room air, and blood pressure 122/56. CARDIOVASCULAR: S1 and S2 plus. RESPIRATORY: Normal vesicular breath sounds. ABDOMEN: Soft and nontender. Bowel sounds heard in all quadrants. EXTREMITIES: Without cyanosis or clubbing. Chronic stasis dermatitis. CENTRAL NERVOUS SYSTEM: Generalized weakness, otherwise nonfocal. LABORATORY VALUES: White count is down to normal at 10.3, hemoglobin and hematocrit are 9.3 and 30.3, and platelet count is 333. Sedimentation rate is 73. Chemistry; sodium is 137, potassium 4.2, BUN and creatinine 37 and 1.63. CRP at 3.64. IMPRESSION: 1. Enterococcal bacteremia. 2. Atrial fibrillation, status post Watchman repair. 3. Right groin hematoma, improving. 4. Possible right groin strain. 5. Obstructive sleep apnea. 6. Hypertension. 7. Dyslipidemia. 8. Anemia likely due to chronic blood loss. 9. Mild renal insufficiency. PLAN: 1. Continue current medications. 2. Nutritional support. 3. DVT prophylaxis - the patient is on Eliquis. 4. Decubitus precautions. 5. Stress ulcer prophylaxis. 6. Antibiotics until 28. 7. Encourage p.o. fluid intake. 8. Reduce Lasix to 40 daily due to worsening azotemia and reduce potassium to 20 daily. Continue therapy and monitor his right groin. Discussed with the patient and family. Job ID: [id number]
[2020-01-31] MEDS: Acetaminophen 325 MG TAB PO PRN (17:14)
[2020-01-31] MEDS: Gabapentin 300 MG CAP PO SCH (20:45)
[2020-01-31] MEDS: Atorvastatin Calcium 20 MG TAB PO SCH (20:46)
[2020-02-01] MEDS: Ampicillin 2 GM in Sodium Chloride 0.9% 100 ML IVPB SCH ×4 (05:35→23:58)
[2020-02-01] MEDS: Mometasone/Formoterol 200/5 60 PUFF INH SCH ×2 (05:36→17:48)
[2020-02-01 05:46] LABS: Platelet Count 325 thou/uL (130-400)
[2020-02-01] MEDS: Polyethylene Glycol 3350 17 GM Packet PO SCH (08:43)
[2020-02-01] MEDS: cefTRIAXone\\ROCEPHIN 2 GM in Sodium Chloride 0.9% 100 ML IVPB SCH ×2 (08:44→20:37)
[2020-02-01] MEDS: Potassium Chloride 20 MEQ TAB PO SCH (08:45)
[2020-02-01] MEDS: Amiodarone 200 MG TAB PO SCH (08:46)
[2020-02-01] MEDS: Allopurinol 100 MG TAB PO SCH (08:46)
[2020-02-01] MEDS: Ferrous Sulfate 325 MG TAB PO SCH (08:46)
[2020-02-01] MEDS: Spironolactone 25 MG TAB PO SCH (08:47)
[2020-02-01] MEDS: Furosemide 40 MG TAB PO SCH (08:47)
[2020-02-01] MEDS: Apixaban 2.5 MG TAB PO SCH ×2 (08:47→20:37)
[2020-02-01] MEDS: Multivitamin W/ Minerals 1 TAB PO SCH (08:48)
[2020-02-01] MEDS: Magnesium Oxide 400 MG TAB PO SCH (08:48)
[2020-02-01] MEDS: Colchicine 0.6 MG TAB PO SCH (08:48)
[2020-02-01] MEDS: Thiamine 100 MG TAB PO SCH (08:48)
[2020-02-01] MEDS: Aspirin 81 mg Enteric Coated Tablet PO SCH (08:49)
--- NOTE | 2020-02-01 10:36 | PRG ---
DATE OF SERVICE: 02/01/2020 SUBJECTIVE: Mr. Canchola is resting comfortably. He denies any complaints. His right thigh and groin pain seems to be improving. OBJECTIVE: VITAL SIGNS: He is afebrile. Heart rate 60, respirations 19, oxygen saturation 99% on room air, blood pressure 149/66. CARDIOVASCULAR: S1 and S2 plus. RESPIRATORY: Normal vesicular breath sounds. ABDOMEN: Soft and nontender. Bowel sounds heard in all quadrants. EXTREMITIES: Without cyanosis or clubbing. Chronic stasis dermatitis. IMPRESSION: 1. Enterococcal bacteremia. 2. Atrial fibrillation, status post Watchman procedure. 3. Obstructive sleep apnea. 4. Hypertension. 5. Dyslipidemia. 6. Anemia, likely due to chronic blood loss and mild renal insufficiency. PLAN: 1. Continue current medications. 2. Heart healthy diet. 3. DVT prophylaxis - the patient is on Eliquis. 4. Decubitus precautions. 5. Stress ulcer prophylaxis. 6. Recheck BMP on Tuesday. 7. Continue CPAP. 8. Physical therapy. 9. Discussed with the patient in detail as well as his daughter. There is some suspicion that his one of his [id number] was exposed. I advised him to make sure that she self-quarantine in place, and if she develops any symptoms, she needs to contact her PCP. She definitely should not come and visit him. Job ID: [id number]
[2020-02-01] MEDS: Acetaminophen 325 MG TAB PO PRN (14:16)
[2020-02-01] MEDS: Gabapentin 300 MG CAP PO SCH (20:37)
[2020-02-01] MEDS: Atorvastatin Calcium 20 MG TAB PO SCH (20:37)
[2020-02-02] MEDS: Mometasone/Formoterol 200/5 60 PUFF INH SCH ×2 (05:41→18:10)
[2020-02-02] MEDS: Ampicillin 2 GM in Sodium Chloride 0.9% 100 ML IVPB SCH ×3 (05:41→18:10)
[2020-02-02] MEDS: Furosemide 40 MG TAB PO SCH (08:22)
[2020-02-02] MEDS: Potassium Chloride 20 MEQ TAB PO SCH (08:22)
[2020-02-02] MEDS: Spironolactone 25 MG TAB PO SCH (08:23)
[2020-02-02] MEDS: Ferrous Sulfate 325 MG TAB PO SCH (08:23)
[2020-02-02] MEDS: cefTRIAXone\\ROCEPHIN 2 GM in Sodium Chloride 0.9% 100 ML IVPB SCH ×2 (09:40→20:43)
[2020-02-02] MEDS: Polyethylene Glycol 3350 17 GM Packet PO SCH (09:40)
[2020-02-02] MEDS: Apixaban 2.5 MG TAB PO SCH ×2 (09:43→20:41)
[2020-02-02] MEDS: Aspirin 81 mg Enteric Coated Tablet PO SCH (09:43)
[2020-02-02] MEDS: Magnesium Oxide 400 MG TAB PO SCH (09:43)
[2020-02-02] MEDS: Thiamine 100 MG TAB PO SCH (09:43)
[2020-02-02] MEDS: Multivitamin W/ Minerals 1 TAB PO SCH (09:43)
[2020-02-02] MEDS: Amiodarone 200 MG TAB PO SCH (09:43)
[2020-02-02] MEDS: Allopurinol 100 MG TAB PO SCH (09:43)
[2020-02-02] MEDS: Colchicine 0.6 MG TAB PO SCH (09:43)
[2020-02-02] MEDS ORDERED: Sodium Chloride 0.9% 20 ML ONE (18:04)
[2020-02-02] MEDS: Gabapentin 300 MG CAP PO SCH (20:41)
[2020-02-02] MEDS: Atorvastatin Calcium 20 MG TAB PO SCH (20:41)
[2020-02-03] MEDS: Ampicillin 2 GM in Sodium Chloride 0.9% 100 ML IVPB SCH ×4 (05:35→17:19)
[2020-02-03] MEDS: Mometasone/Formoterol 200/5 60 PUFF INH SCH ×2 (05:38→17:20)
[2020-02-03 05:45] LABS: Anion Gap 13 mmol/L (10-20); BUN (Urea Nitrogen) 28 mg/dL (8.4-25.7); Calc. Creatinine Clearance 78 mL/min (70-130); Calcium 8.5 mg/dL (7.8-10.44); Carbon Dioxide 22 mmol/L (23-31); Chloride 107 mmol/L (98-107); Estimated GFR-MDRD 58; Glucose 91 mg/dL (83-110); Potassium 4.1 mmol/L (3.5-5.1); Sodium 138 mmol/L (136-145)
[2020-02-03 05:48] LABS: #Basophils 0.1 thou/uL (0.0-0.2); #Eosinphils 0.5 thou/uL (0.0-0.7); #Lymphocytes 1.3 thou/uL (1.20-3.40); #Monocytes 1.2 thou/uL (0.11-0.59); #Neutrophils 6.1 thou/uL (1.40-6.50); %Basophils 1.6 % (0.0-1.0); %Eosinophils 5.9 % (0.0-10.0); %Lymphocytes 13.8 % (21.0-51.0); %Monocytes 12.6 % (0.0-10.0); %Neutrophils 66.1 % (42.0-75.0); Hemoglobin 9.1 g/dL (14.0-18.0); Mean Corpuscular HGB CONC 32.5 g/dL (32.0-36.0); Mean Corpuscular Hemoglobin 32.7 pg (27.0-31.0); Mean Platelet Volume 6.1 fL (7.4-10.4); Platelet Count 344 thou/uL (130-400); Red Blood Cell (RBC) Count 2.78 mill/uL (4.70-6.10); White Blood Cell (WBC) Count 9.2 thou/uL (4.8-10.8)
--- NOTE | 2020-02-03 07:11 | PRG ---
DATE OF SERVICE: 02/02/[address] Axel Montoya. SUBJECTIVE: The patient is lying in bed, resting with no complaints of chest pain, shortness of breath, fever, chills, nausea, and vomiting. OBJECTIVE: VITAL SIGNS: Show temperature is 98.4 pulse 63, respirations 18, O2 saturation is 97% on room air, and blood pressure is 147/67. LUNGS: Clear. CARDIAC: Shows regular rhythm. No gallops or murmurs. ABDOMEN: Soft, nontender with no masses or organomegaly. SKIN/EXTREMITIES: Show no edema, clubbing, or cyanosis. There is some chronic dermatitis. ASSESSMENT: 1. Resolving enterococcal bacteremia. 2. Stable atrial fibrillation with rate controlled with no anticoagulation, secondary to Watchman procedure. 3. Stable hypertension, controlled to goal. 4. Anemia. 5. Chronic kidney disease. PLAN: 1. Repeat CBC, comprehensive metabolic profile in the a.m. 2. Continue on Eliquis, status post Watchman procedure until discontinued by Electrophysiology as there had to be repaired of his Watchman procedure. 3. Repeat labs in the a.m. 4. Continue stress ulcer prophylaxis. 5. Continue CPAP at night for his obstructive sleep apnea. Job ID: [id number]
[2020-02-03] MEDS: Ferrous Sulfate 325 MG TAB PO SCH (08:30)
[2020-02-03] MEDS: Multivitamin W/ Minerals 1 TAB PO SCH (08:30)
[2020-02-03] MEDS: Magnesium Oxide 400 MG TAB PO SCH (08:31)
[2020-02-03] MEDS: Furosemide 40 MG TAB PO SCH (08:31)
[2020-02-03] MEDS: Potassium Chloride 20 MEQ TAB PO SCH (08:31)
[2020-02-03] MEDS: Spironolactone 25 MG TAB PO SCH (08:31)
[2020-02-03] MEDS: Amiodarone 200 MG TAB PO SCH (08:31)
[2020-02-03] MEDS: Allopurinol 100 MG TAB PO SCH (08:32)
[2020-02-03] MEDS: Aspirin 81 mg Enteric Coated Tablet PO SCH (08:32)
[2020-02-03] MEDS: Colchicine 0.6 MG TAB PO SCH (08:32)
[2020-02-03] MEDS: Apixaban 2.5 MG TAB PO SCH ×2 (08:32→20:45)
[2020-02-03] MEDS: Thiamine 100 MG TAB PO SCH (08:32)
[2020-02-03] MEDS: Polyethylene Glycol 3350 17 GM Packet PO SCH (08:33)
[2020-02-03] MEDS: cefTRIAXone\\ROCEPHIN 2 GM in Sodium Chloride 0.9% 100 ML IVPB SCH ×2 (08:33→20:44)
--- NOTE | 2020-02-03 19:08 | PRG ---
DATE OF SERVICE: 02/03/[address] Axel Montoya. SUBJECTIVE: The patient feels well lying in bed. States when asked question about when he can go home when he finish his antibiotics, which will due to be through next Tuesday. He feels that he is getting stronger. OBJECTIVE: VITAL SIGNS: Shows temperature 98.8, pulse 60, respirations 20, O2 sats 97% on room air, blood pressure 133/64. LUNGS: Clear. CARDIAC: Regular rhythm. ABDOMEN: Soft and nontender. SKIN AND EXTREMITIES: Show no edema, clubbing, or cyanosis. ASSESSMENT: 1. Resolving enterococcal bacteremia with antibiotic to finish February 08. 2. Stable atrial fibrillation with rate control. anticoagulation secondary to the patient with Watchman procedure. 3. Hypertension, controlled to goal. 4. Deconditioning, improving daily. 5. Obstructive sleep apnea, with compliance to CPAP. 6. Chronic kidney disease, stable 3. PLAN: 1. Change antibiotics. 2. Continue PT and OT. 3. Discuss discharge planning with Dr. Espinal. 4. Continue rate control and anticoagulation of atrial fibrillation. 5. Recent Watchman. Job ID: [id number]
[2020-02-03] MEDS: Gabapentin 300 MG CAP PO SCH (20:45)
[2020-02-03] MEDS: Atorvastatin Calcium 20 MG TAB PO SCH (20:45)
[2020-02-03] MEDS: Acetaminophen 325 MG TAB PO PRN (20:48)
[2020-02-04] MEDS: Ampicillin 2 GM in Sodium Chloride 0.9% 100 ML IVPB SCH ×4 (00:37→17:23)
[2020-02-04] MEDS: Mometasone/Formoterol 200/5 60 PUFF INH SCH ×2 (06:28→17:23)
[2020-02-04] MEDS: cefTRIAXone\\ROCEPHIN 2 GM in Sodium Chloride 0.9% 100 ML IVPB SCH ×2 (08:44→20:41)
[2020-02-04] MEDS: Furosemide 40 MG TAB PO SCH (08:45)
[2020-02-04] MEDS: Ferrous Sulfate 325 MG TAB PO SCH (08:45)
[2020-02-04] MEDS: Aspirin 81 mg Enteric Coated Tablet PO SCH (08:45)
[2020-02-04] MEDS: Spironolactone 25 MG TAB PO SCH (08:46)
[2020-02-04] MEDS: Potassium Chloride 20 MEQ TAB PO SCH (08:46)
[2020-02-04] MEDS: Amiodarone 200 MG TAB PO SCH (08:46)
[2020-02-04] MEDS: Allopurinol 100 MG TAB PO SCH (08:47)
[2020-02-04] MEDS: Apixaban 2.5 MG TAB PO SCH ×2 (08:47→20:42)
[2020-02-04] MEDS: Magnesium Oxide 400 MG TAB PO SCH (08:47)
[2020-02-04] MEDS: Multivitamin W/ Minerals 1 TAB PO SCH (08:47)
[2020-02-04] MEDS: Polyethylene Glycol 3350 17 GM Packet PO SCH (08:48)
[2020-02-04] MEDS: Thiamine 100 MG TAB PO SCH (08:48)
[2020-02-04] MEDS: Colchicine 0.6 MG TAB PO SCH (08:53)
[2020-02-04] MEDS: Acetaminophen 325 MG TAB PO PRN ×2 (08:53→13:04)
--- NOTE | 2020-02-04 13:59 | PRG ---
DATE OF SERVICE: 02/04/2020 SUBJECTIVE: Mr. Canchola is doing the same. Denies any complaints. He actually does state that his right thigh pain is much better. He is improving with Therapy. Discussed with them and anticipated discharge from therapy as well as him finishing antibiotics is the . He finishes the antibiotic on the , but he plans to discharge home on the . OBJECTIVE: VITAL SIGNS: He is afebrile, heart rate 60, respirations 20, oxygen saturation 96% room air, and blood pressure 135/61. CARDIOVASCULAR: S1 and S2 plus. RESPIRATORY: Normal vesicular breath sounds. ABDOMEN: Soft, nontender. Bowel sounds heard in all quadrants. EXTREMITIES: Without cyanosis or clubbing. Chronic stasis dermatitis. CENTRAL NERVOUS SYSTEM: Improving deconditioning. LABORATORY VALUES: White count is 9.2, H and H are 9.1 and 28. Sodium 138, potassium 4.1, BUN and hematocrit are 28 and 1.21. His BUN and creatinine are improving since reducing his Lasix to once daily. IMPRESSION: 1. Enterococcal bacteremia. 2. Atrial fibrillation, status post repair of his Watchman procedure. 3. Anemia, likely due to chronic blood loss. 4. Hypertension. 5. Obstructive sleep apnea. 6. Resolving azotemia. 7. Stasis dermatitis, chronic. PLAN: 1. Continue current medications. 2. Heart-healthy diet. 3. Physical therapy. 4. Nutritional support. 5. Continue CPAP. 6. Recheck CBC, CMP, and CRP in 2 days. 7. DVT prophylaxis - the patient is on Eliquis. Job ID: [id number]
[2020-02-04] MEDS: Atorvastatin Calcium 20 MG TAB PO SCH (20:42)
[2020-02-04] MEDS: Gabapentin 300 MG CAP PO SCH (20:42)
[2020-02-05] MEDS: Ampicillin 2 GM in Sodium Chloride 0.9% 100 ML IVPB SCH ×5 (00:41→23:34)
[2020-02-05] MEDS: Mometasone/Formoterol 200/5 60 PUFF INH SCH ×2 (05:17→18:38)
[2020-02-05] MEDS: Ferrous Sulfate 325 MG TAB PO SCH (08:14)
[2020-02-05] MEDS: Furosemide 40 MG TAB PO SCH ×2 (08:14→13:47)
[2020-02-05] MEDS: Amiodarone 200 MG TAB PO SCH (08:15)
[2020-02-05] MEDS: Allopurinol 100 MG TAB PO SCH (08:15)
[2020-02-05] MEDS: Potassium Chloride 20 MEQ TAB PO SCH (08:15)
[2020-02-05] MEDS: Spironolactone 25 MG TAB PO SCH (08:15)
[2020-02-05] MEDS: Apixaban 2.5 MG TAB PO SCH ×2 (08:16→20:47)
[2020-02-05] MEDS: Aspirin 81 mg Enteric Coated Tablet PO SCH (08:16)
[2020-02-05] MEDS: cefTRIAXone\\ROCEPHIN 2 GM in Sodium Chloride 0.9% 100 ML IVPB SCH ×2 (08:16→20:47)
[2020-02-05] MEDS: Polyethylene Glycol 3350 17 GM Packet PO SCH (08:17)
[2020-02-05] MEDS: Colchicine 0.6 MG TAB PO SCH (08:17)
[2020-02-05] MEDS: Multivitamin W/ Minerals 1 TAB PO SCH (08:17)
[2020-02-05] MEDS: Magnesium Oxide 400 MG TAB PO SCH (08:17)
[2020-02-05] MEDS: Acetaminophen 325 MG TAB PO PRN (08:18)
[2020-02-05] MEDS: Thiamine 100 MG TAB PO SCH (08:18)
--- NOTE | 2020-02-05 12:26 | PRG ---
DATE OF SERVICE: 02/05/2020 SUBJECTIVE: Mr. Canchola is having a shower. He is working with occupational therapy. He states that he is noticing increasing swelling, but denies any PND or orthopnea. I had reduce his Lasix to daily due to worsening azotemia, but we will get him back on twice a day medication. He is also not getting his Zaroxolyn on a scheduled basis. The patient denies any other questions or concerns. OBJECTIVE: VITAL SIGNS: He is afebrile, heart rate 81, respirations 18, oxygen saturation 98% on room air, and blood pressure 123/54. CARDIOVASCULAR SYSTEM: S1-S2 plus. RESPIRATORY SYSTEM: Normal vesicular breath sounds. ABDOMEN: Soft, nontender, and obese. Bowel sounds heard in all quadrants. EXTREMITIES: Without cyanosis or clubbing. 1+ edema. Chronic stasis dermatitis. CENTRAL NERVOUS SYSTEM: Improving deconditioning. IMPRESSION: 1. Enterococcal bacteremia. 2. Obstructive sleep apnea. 3. Chronic stasis dermatitis. 4. Increasing lower extremity edema. 5. Atrial fibrillation. 6. Hypertension. PLAN: 1. Increase Lasix to b.i.d. 2. Check CBC, CMP, and CRP tomorrow. 3. Monitor potassium level. 4. DVT prophylaxis-the patient is on Eliquis. 5. Decubitus precautions. 6. Stress ulcer prophylaxis. 7. Continue antibiotics until the . Job ID: [id number]
[2020-02-05] MEDS: Atorvastatin Calcium 20 MG TAB PO SCH (20:47)
[2020-02-05] MEDS: Gabapentin 300 MG CAP PO SCH (20:48)
[2020-02-06] MEDS: Ampicillin 2 GM in Sodium Chloride 0.9% 100 ML IVPB SCH ×3 (05:10→17:25)
[2020-02-06] MEDS: Mometasone/Formoterol 200/5 60 PUFF INH SCH ×2 (05:11→17:33)
[2020-02-06 05:59] LABS: ALT (SGPT) 42 U/L (8-55); AST (SGOT) 42 U/L (5-34); Albumin 2.7 g/dL (3.4-4.8); Alkaline Phosphatase 152 U/L (40-110); Anion Gap 14 mmol/L (10-20); BUN (Urea Nitrogen) 25 mg/dL (8.4-25.7); Bilirubin, Total 0.5 mg/dL (0.2-1.2); CRP (Inflammatory) 4.45 mg/dL (= or < 0.5); Calc. Creatinine Clearance 85 mL/min (70-130); Calcium 8.4 mg/dL (7.8-10.44); Carbon Dioxide 22 mmol/L (23-31); Chloride 106 mmol/L (98-107); Estimated GFR-MDRD 64; Globulin 3.1 g/dL (2.4-3.5); Glucose 85 mg/dL (83-110); Potassium 3.9 mmol/L (3.5-5.1); Protein, Total 5.8 g/dL (5.8-8.1); Sodium 138 mmol/L (136-145)
[2020-02-06 06:09] LABS: Band 6 % (5-11); Eosinophils 7 % (0-10); Hemoglobin 9.5 g/dL (14.0-18.0); Hypochromia MODERATE=16-30 cells (100X) (0-5/hpf); Lymphocytes 23 % (21-51); MDiff Complete? YES; Macrocytosis MODERATE=16-30 cells (100X) (0-5/hpf); Mean Corpuscular HGB CONC 31.1 g/dL (32.0-36.0); Mean Corpuscular Hemoglobin 31.9 pg (27.0-31.0); Mean Platelet Volume 5.7 fL (7.4-10.4); Monocytes 8 % (0-10); Neutrophil 56 % (42-75); Platelet Count 370 thou/uL (130-400); Platelet Morphology Comment Appears Adequate; RBC Distribution Width 13.9 % (11.5-14.5); Red Blood Cell (RBC) Count 2.98 mill/uL (4.70-6.10); White Blood Cell (WBC) Count 8.5 thou/uL (4.8-10.8)
[2020-02-06] MEDS: Ferrous Sulfate 325 MG TAB PO SCH (08:22)
[2020-02-06] MEDS: Aspirin 81 mg Enteric Coated Tablet PO SCH (08:22)
[2020-02-06] MEDS: Apixaban 2.5 MG TAB PO SCH ×2 (08:23→21:11)
[2020-02-06] MEDS: Multivitamin W/ Minerals 1 TAB PO SCH (08:23)
[2020-02-06] MEDS: Potassium Chloride 20 MEQ TAB PO SCH (08:23)
[2020-02-06] MEDS: Spironolactone 25 MG TAB PO SCH (08:23)
[2020-02-06] MEDS: Magnesium Oxide 400 MG TAB PO SCH (08:24)
[2020-02-06] MEDS: Allopurinol 100 MG TAB PO SCH (08:24)
[2020-02-06] MEDS: Amiodarone 200 MG TAB PO SCH (08:24)
[2020-02-06] MEDS: Furosemide 40 MG TAB PO SCH ×2 (08:24→14:36)
[2020-02-06] MEDS: Thiamine 100 MG TAB PO SCH (08:24)
[2020-02-06] MEDS: Polyethylene Glycol 3350 17 GM Packet PO SCH (08:25)
[2020-02-06] MEDS: Colchicine 0.6 MG TAB PO SCH (08:25)
[2020-02-06] MEDS: cefTRIAXone\\ROCEPHIN 2 GM in Sodium Chloride 0.9% 100 ML IVPB SCH ×2 (08:25→21:12)
[2020-02-06] MEDS: Acetaminophen 325 MG TAB PO PRN (12:15)
--- NOTE | 2020-02-06 13:21 | PRG ---
DATE OF SERVICE: 02/06/2020 SUBJECTIVE: Mr. Canchola is resting in bed. Denies any complaints. He continues to have some swelling in his legs, but denies any PND or orthopnea. OBJECTIVE: VITAL SIGNS: He is afebrile. Heart rate 65, respirations 16, oxygen saturation 97% room air, blood pressure 138/61. CARDIOVASCULAR SYSTEM: S1, S2 plus. RESPIRATORY SYSTEM: Normal vesicular breath sounds. ABDOMEN: Soft, nontender. Bowel sounds heard in all quadrants. EXTREMITIES: Without cyanosis, clubbing. 1+ edema. Chronic stasis dermatitis. CENTRAL NERVOUS SYSTEM: Improving deconditioning. LABORATORY VALUES: White count is 8.5, H and H are 9.5 and 30. Sedimentation rate is down to 68. Sodium 138, potassium 3.9, BUN and creatinine are 25 and 1.11. CRP is up at 4.45. IMPRESSION: 1. Enterococcal bacteremia. 2. Atrial fibrillation, status post Watchman repair. 3. Anemia, likely due to chronic blood loss. 4. Improving deconditioning. 5. Stasis dermatitis. 6. Obstructive sleep apnea. 7. Hypertension. PLAN: 1. Continue current medications, but have them give his metolazone before his afternoon Lasix. 2. Check blood cultures to rule out any persistence of enterococcal bacteremia. 3. Reinforce compliance with CPAP. 4. DVT prophylaxis - the patient is on Eliquis. 5. Decubitus precautions. 6. Stress ulcer prophylaxis. 7. Routine laboratory values. Job ID: [id number]
[2020-02-06] MEDS: Atorvastatin Calcium 20 MG TAB PO SCH (21:11)
[2020-02-06] MEDS: Gabapentin 300 MG CAP PO SCH (21:12)
[2020-02-07] MEDS: Ampicillin 2 GM in Sodium Chloride 0.9% 100 ML IVPB SCH ×5 (00:06→23:23)
[2020-02-07] MEDS: Mometasone/Formoterol 200/5 60 PUFF INH SCH ×2 (06:10→18:04)
[2020-02-07] MEDS: Potassium Chloride 20 MEQ TAB PO SCH (08:23)
[2020-02-07] MEDS: Spironolactone 25 MG TAB PO SCH (08:23)
[2020-02-07] MEDS: Ferrous Sulfate 325 MG TAB PO SCH (08:23)
[2020-02-07] MEDS: Polyethylene Glycol 3350 17 GM Packet PO SCH (09:05)
[2020-02-07] MEDS: Multivitamin W/ Minerals 1 TAB PO SCH (09:05)
[2020-02-07] MEDS: cefTRIAXone\\ROCEPHIN 2 GM in Sodium Chloride 0.9% 100 ML IVPB SCH ×2 (09:05→20:31)
[2020-02-07] MEDS: Furosemide 40 MG TAB PO SCH ×2 (09:06→14:02)
[2020-02-07] MEDS: Amiodarone 200 MG TAB PO SCH (09:06)
[2020-02-07] MEDS: Acetaminophen 325 MG TAB PO PRN (09:06)
[2020-02-07] MEDS: Apixaban 2.5 MG TAB PO SCH ×2 (09:06→20:31)
[2020-02-07] MEDS: Thiamine 100 MG TAB PO SCH (09:07)
[2020-02-07] MEDS: Colchicine 0.6 MG TAB PO SCH (09:07)
[2020-02-07] MEDS: Magnesium Oxide 400 MG TAB PO SCH (09:07)
[2020-02-07] MEDS: Allopurinol 100 MG TAB PO SCH (09:07)
[2020-02-07] MEDS: Aspirin 81 mg Enteric Coated Tablet PO SCH (09:08)
--- NOTE | 2020-02-07 13:39 | PRG ---
DATE OF SERVICE: 02/07/2020 SUBJECTIVE: Mr. Canchola is resting comfortably in bed. His leg swelling is much improved. Discussed with nursing. No family at bedside. OBJECTIVE: VITAL SIGNS: He is afebrile, heart rate 64, respirations 16, oxygen saturation 98% on room air, blood pressure 145/65. CARDIOVASCULAR: S1 and S2 plus. RESPIRATORY: Normal vesicular breath sounds. ABDOMEN: Soft, nontender. Bowel sounds heard in all quadrants. EXTREMITIES: Without cyanosis or clubbing. Trace edema. Chronic stasis dermatitis. CENTRAL NERVOUS SYSTEM: Improving deconditioning. IMPRESSION: 1. Enterococcal bacteremia. 2. Atrial fibrillation, status post Watchman procedure. 3. Anemia likely due to chronic blood loss. 4. Obstructive sleep apnea. 5. Hypertension. 6. Deconditioning. PLAN: 1. Continue current medications. 2. Heart healthy diet. 3. DVT prophylaxis - the patient is on Eliquis. 4. Decubitus precautions. 5. Stress ulcer prophylaxis. 6. Continue CPAP use. 7. Await blood cultures. 8. Discharge planning. Job ID: [id number]
[2020-02-07] MEDS: Gabapentin 300 MG CAP PO SCH (20:31)
[2020-02-07] MEDS: Atorvastatin Calcium 20 MG TAB PO SCH (20:31)
[2020-02-08] MEDS: Ampicillin 2 GM in Sodium Chloride 0.9% 100 ML IVPB SCH ×4 (05:21→23:41)
[2020-02-08] MEDS: Mometasone/Formoterol 200/5 60 PUFF INH SCH ×2 (05:25→18:51)
[2020-02-08 05:39] LABS: Hemoglobin 9.6 g/dL (14.0-18.0); Platelet Count 421 thou/uL (130-400)
[2020-02-08] MEDS: Spironolactone 25 MG TAB PO SCH (08:55)
[2020-02-08] MEDS: Potassium Chloride 20 MEQ TAB PO SCH (08:55)
[2020-02-08] MEDS: Magnesium Oxide 400 MG TAB PO SCH (09:55)
[2020-02-08] MEDS: Colchicine 0.6 MG TAB PO SCH (09:55)
[2020-02-08] MEDS: Multivitamin W/ Minerals 1 TAB PO SCH (09:55)
[2020-02-08] MEDS: Aspirin 81 mg Enteric Coated Tablet PO SCH (09:55)
[2020-02-08] MEDS: Polyethylene Glycol 3350 17 GM Packet PO SCH (09:55)
[2020-02-08] MEDS: Amiodarone 200 MG TAB PO SCH (09:55)
[2020-02-08] MEDS: Thiamine 100 MG TAB PO SCH (09:55)
[2020-02-08] MEDS: Ferrous Sulfate 325 MG TAB PO SCH (09:55)
[2020-02-08] MEDS: Apixaban 2.5 MG TAB PO SCH ×2 (09:55→21:01)
[2020-02-08] MEDS: Allopurinol 100 MG TAB PO SCH (09:55)
[2020-02-08] MEDS: Furosemide 40 MG TAB PO SCH ×2 (09:55→14:30)
[2020-02-08] MEDS: cefTRIAXone\\ROCEPHIN 2 GM in Sodium Chloride 0.9% 100 ML IVPB SCH ×2 (10:12→21:01)
[2020-02-08] MEDS: Acetaminophen 325 MG TAB PO PRN (14:29)
[2020-02-08] MEDS: Atorvastatin Calcium 20 MG TAB PO SCH (21:01)
[2020-02-08] MEDS: Gabapentin 300 MG CAP PO SCH (21:01)
[2020-02-09] MEDS: Ampicillin 2 GM in Sodium Chloride 0.9% 100 ML IVPB SCH ×3 (05:40→17:42)
[2020-02-09] MEDS: Mometasone/Formoterol 200/5 60 PUFF INH SCH ×2 (07:05→17:42)
[2020-02-09] MEDS: Ferrous Sulfate 325 MG TAB PO SCH (08:51)
[2020-02-09] MEDS: Potassium Chloride 20 MEQ TAB PO SCH (08:51)
[2020-02-09] MEDS: Allopurinol 100 MG TAB PO SCH (08:52)
[2020-02-09] MEDS: Spironolactone 25 MG TAB PO SCH (08:52)
[2020-02-09] MEDS: Aspirin 81 mg Enteric Coated Tablet PO SCH (08:52)
[2020-02-09] MEDS: Amiodarone 200 MG TAB PO SCH (08:53)
[2020-02-09] MEDS: Apixaban 2.5 MG TAB PO SCH ×2 (08:53→20:43)
[2020-02-09] MEDS: cefTRIAXone\\ROCEPHIN 2 GM in Sodium Chloride 0.9% 100 ML IVPB SCH ×2 (08:53→20:40)
[2020-02-09] MEDS: Furosemide 40 MG TAB PO SCH ×2 (08:54→14:27)
[2020-02-09] MEDS: Multivitamin W/ Minerals 1 TAB PO SCH (08:55)
[2020-02-09] MEDS: Magnesium Oxide 400 MG TAB PO SCH (08:55)
[2020-02-09] MEDS: Polyethylene Glycol 3350 17 GM Packet PO SCH (08:55)
[2020-02-09] MEDS: Colchicine 0.6 MG TAB PO SCH (08:55)
[2020-02-09] MEDS: Thiamine 100 MG TAB PO SCH (08:56)
[2020-02-09] MEDS: Gabapentin 300 MG CAP PO SCH (20:43)
[2020-02-09] MEDS: Atorvastatin Calcium 20 MG TAB PO SCH (20:43)
[2020-02-10] MEDS: Ampicillin 2 GM in Sodium Chloride 0.9% 100 ML IVPB SCH (00:19)
[2020-02-10] MEDS: Mometasone/Formoterol 200/5 60 PUFF INH SCH (04:56)
[2020-02-10] MEDS: Potassium Chloride 20 MEQ TAB PO SCH (08:18)
[2020-02-10] MEDS: Spironolactone 25 MG TAB PO SCH (08:18)
[2020-02-10] MEDS: Ferrous Sulfate 325 MG TAB PO SCH (08:18)
[2020-02-10] MEDS: Apixaban 2.5 MG TAB PO SCH (08:19)
[2020-02-10] MEDS: Amiodarone 200 MG TAB PO SCH (08:19)
[2020-02-10] MEDS: Allopurinol 100 MG TAB PO SCH (08:19)
[2020-02-10] MEDS: Magnesium Oxide 400 MG TAB PO SCH (08:22)
[2020-02-10] MEDS: Furosemide 40 MG TAB PO SCH (08:22)
[2020-02-10] MEDS: Multivitamin W/ Minerals 1 TAB PO SCH (08:22)
[2020-02-10] MEDS: Colchicine 0.6 MG TAB PO SCH (08:22)
[2020-02-10] MEDS: Aspirin 81 mg Enteric Coated Tablet PO SCH (08:22)
[2020-02-10] MEDS: Acetaminophen 325 MG TAB PO PRN (08:23)
[2020-02-10] MEDS: Polyethylene Glycol 3350 17 GM Packet PO SCH (08:23)
[2020-02-10] MEDS: Thiamine 100 MG TAB PO SCH (08:23)
[2020-02-10 10:26] VITALS: BP 152/67; TEMP 97.9
--- NOTE | 2020-02-10 17:07 | PRG ---
DATE OF SERVICE: 02/09/2020 SUBJECTIVE: Mr. Canchola is doing the same. He is looking forward to going home tomorrow. He wants to leave early, so I advised him I will finish all the paperwork today. OBJECTIVE: VITAL SIGNS: He is afebrile. Heart rate is 63, respirations 16, oxygen saturation 96% on room air, blood pressure 139/68. CARDIOVASCULAR: S1 and S2 plus. RESPIRATORY: Normal vesicular breath sounds. ABDOMEN: Soft, nontender. Bowel sounds heard in all quadrants. EXTREMITIES: Without cyanosis or clubbing. Chronic stasis dermatitis. CENTRAL NERVOUS SYSTEM: Grossly nonfocal. IMPRESSION: 1. Enterococcal bacteremia. 2. Atrial fibrillation, status post Watchman procedure. 3. Obstructive sleep apnea. 4. Anemia likely due to chronic blood loss. 5. Hypertension. 6. Deconditioning. PLAN: 1. Continue current medications. 2. Heart healthy diet. 3. Remove PICC line once antibiotics are done. 4. Finish discharge paperwork. 5. Continue CPAP use. 6. Outpatient followup with his PCP and specialist. 7. Await blood cultures. Job ID: [id number]
--- NOTE | 2020-02-10 17:21 | PRG ---
DATE OF SERVICE: 02/08/2020 SUBJECTIVE: Mr. Canchola is doing well. Denies any complaints. Tolerating his antibiotics. Blood cultures are negative so far. OBJECTIVE: VITAL SIGNS: He is afebrile. Heart rate 71, respirations 16, oxygen saturation 98% on room air, blood pressure 162/70. CARDIOVASCULAR: S1 and S2 plus. RESPIRATORY: Normal vesicular breath sounds. ABDOMEN: Soft, nontender. Bowel sounds heard in all quadrants. EXTREMITIES: Without cyanosis or clubbing. CENTRAL NERVOUS SYSTEM: Grossly nonfocal. IMPRESSION: 1. Enterococcal bacteremia. 2. Atrial fibrillation, status post Watchman repair. 3. Obstructive sleep apnea. 4. Lower extremity venous insufficiency with stasis dermatitis. 5. Hypertension. 6. Improving deconditioning. PLAN: 1. Continue current medications. 2. Nutritional support with heart healthy diet. 3. DVT prophylaxis - the patient is on Eliquis. 4. Decubitus precautions. 5. Stress ulcer prophylaxis. 6. Await blood cultures. 7. Discharge planning. 8. No family at bedside. Job ID: [id number]
--- NOTE | 2020-02-10 18:26 | DIS ---
DATE OF ADMISSION: 01/24/2020 DATE OF DISCHARGE: 02/10/2020 PRINCIPAL DIAGNOSIS: Enterococcal bacteremia. SECONDARY DIAGNOSES: 1. Atrial fibrillation, status post Watchman procedure and fixation of leak. 2. Coronary artery disease. 3. Hypertension. 4. Dyslipidemia. 5. Gout. 6. Anemia likely due to chronic blood loss. 7. Deconditioning. 8. Obstructive sleep apnea. COMPLICATIONS: None. ADVERSE REACTIONS: None. PROCEDURES: None. CONSULTATIONS: None except for occupational therapy and physical therapy. HOSPITAL COURSE: The patient was admitted on 01/24/2020 as a transfer from [facility] for continued antibiotic therapy for enterococcal bacteremia. He was discharged in couple of days to go get his Watchman repair established and then he came back to us to continue antibiotics in a couple of days. He has done well, has improved with therapy, completed his duration of antibiotics on the and was discharged today. He is to continue his current medications. He is to follow up with his PCP and his specialists. He is to call us with any questions or concerns. PHYSICAL EXAMINATION: VITAL SIGNS: On the day of discharge, he is afebrile. Heart rate is 70, respirations 20, oxygen saturation 98% on room air, blood pressure 152/67. CARDIOVASCULAR: S1 and S2 plus. RESPIRATORY: Normal vesicular breath sounds. ABDOMEN: Soft, nontender. Bowel sounds heard in all quadrants. EXTREMITIES: Without cyanosis or clubbing. Much improved edema. Chronic stasis dermatitis. CENTRAL NERVOUS SYSTEM: Grossly nonfocal. IMPRESSION: 1. Coronary artery disease. 2. Enterococcal bacteremia. 3. Atrial fibrillation, status post Watchman. 4. Hypertension. 5. Deconditioning. 6. Gout. 7. Anemia, likely due to chronic blood loss. 8. Obstructive sleep apnea. 9. Lower extremity venous insufficiency. PLAN: Discharged to home. Outpatient followup with PCP. The patient states that he does not need any medications. Reinforce complaints with his CPAP and heart healthy diet. The patient was advised to contact us with any questions or concerns. Activity as tolerated. DISCHARGE MEDICATIONS: 1. Tylenol 650 q.4 p.r.n. 2. Allopurinol 100 mg daily. 3. Amiodarone 400 mg daily. 4. Eliquis 2.5 mg b.i.d. 5. Ecotrin 81 mg daily. 6. Lipitor 20 mg daily. 7. Colchicine 0.6 mg daily. 8. Iron sulfate 325 mg daily. 9. Lasix 40 mg b.i.d. 10. Neurontin 600 mg at bedtime. 11. Zaroxolyn 5 mg daily as needed. 12. Dulera two puffs inhalation b.i.d., gargle after use. 13. Protonix 40 mg b.i.d. 14. Potassium chloride 40 mEq daily. 15. Aldactone 50 mg daily. 16. Multivitamins. For full details, please see chart. Total time spent on this discharge including paperwork and counseling the patient, 35 minutes. Job ID: [id number]
== END 2020-02-10 12:00 | disposition home or self-care (01) | DRG 872 ==
LOC: NAV ACUTE 18:54
PROVIDERS: ADMIT Internal Medicine; ATTEND Internal Medicine
DX: R78.81 Bacteremia (principal); I48.91 Unspecified atrial fibrillation; I25.10 Atherosclerotic heart disease of native coronary artery without angina pectoris; E78.5 Hyperlipidemia, unspecified; M10.9 Gout, unspecified; G47.33 Obstructive sleep apnea (adult) (pediatric); R53.81 Other malaise; B95.2 Enterococcus as the cause of diseases classified elsewhere; D50.0 Iron deficiency anemia secondary to blood loss (chronic); B35.6 Tinea cruris; I12.9 Hypertensive chronic kidney disease with stage 1 through stage 4 chronic kidney disease, or unspecified chronic kidney disease; N18.3 Chronic kidney disease, stage 3 (moderate); I87.2 Venous insufficiency (chronic) (peripheral); R60.0 Localized edema; Z90.49 Acquired absence of other specified parts of digestive tract; Z95.0 Presence of cardiac pacemaker; Z79.82 Long term (current) use of aspirin; Z79.899 Other long term (current) drug therapy
CPT/HCPCS: 36415; 80048; 80053; 82565; 85014; 85018; 85025; 85049; 85652; 86140; 87040; J0290; J0696; J3490